=== PATIENT | male | born 1945 | race Caucasian/White ===

== ENCOUNTER 2018-10-19 15:30 | Inpatient (IN) ==
--- NOTE | 2018-10-19 16:04 | Emergency Department Note ---
Disposition Clinical Impression: Elevated troponin Disposition: Admitted As Inpatient Condition: Good Time of Disposition: 18:14 General Adult HPI - General Chief complaint: ED Chest Pain Stated complaint: chest pain Time Seen by Provider: 10/19/18 15:36 Source: patient Mode of arrival: ambulatory Limitations: no limitations Nursing Notes Reviewed: Yes Vital Signs Reviewed: Yes - History of Present Illness HPI Narrative: Patient is a 73-year-old male that presents emergency Department with reports of intermittent chest pain over the past 2 days. Patient states that yesterday he did develop chest pain after eating spicy food and it self resolved. Patient states that today he ate a big Mac and developed chest pain on both sides of his chest and had some discomfort down into his left arm. Patient states that his chest pain is now gone. States it lasted partially 45 minutes. Patient states that he did take an aspirin but did not take any nitroglycerin. Patient states that he does have a strong cardiac history with a history of coronary bypass. Patient states that the chest pain does feel somewhat similar to prior cardiac events. Patient denies any shortness of breath, diaphoresis but does state that he had some nausea however states that since he was started on metformin a couple of months ago he has been nauseated daily from that. Pain Scale: 0 - Related Data Home Medications Medication Instructions Recorded Confirmed Aspirin [Adult Low Dose Aspirin EC] 81 mg PO DAILY 06/02/15 10/19/18 Colesevelam HCl [Welchol] 3 tab PO DAILY 06/02/15 10/19/18 Fenofibric Acid (Choline) 135 mg PO DAILY 06/02/15 10/19/18 [Trilipix] Levothyroxine [Synthroid] 112 mcg PO 0630 06/02/15 10/19/18 Nebivolol HCl [Bystolic] 10 mg PO DAILY 06/02/15 10/19/18 Omeprazole [PriLOSEC] 20 mg PO DAILY 06/02/15 10/19/18 Rivaroxaban [Xarelto] 5 mg PO 1700 06/02/15 10/19/18 Valsartan [Diovan] 320 mg PO DAILY 06/02/15 10/19/18 amLODIPine [Norvasc] 5 mg PO DAILY PRN 06/01/16 10/19/18 hydroCHLOROthiazide 12.5 mg PO DAILY 04/07/17 08/25/19 [Hydrochlorothiazide] Atorvastatin [Lipitor] 40 mg PO HS 10/19/18 10/19/18 Levothyroxine 10/19/18 Zetia 10/19/18 Allergies Allergy/AdvReac Type Severity Reaction Status Date / Time CONTRAST DYE AdvReac Rash Uncoded 08/28/16 21:32 All systems ED: reviewed and negative except as stated. Constitutional: Denies: fever Cardiovascular: Reports: chest pain Respiratory: Denies: dyspnea Gastrointestinal: Reports: nausea. Denies: abdominal pain, vomiting, diarrhea Genitourinary: Denies: urgency, dysuria, frequency Neurological: Denies: weakness, numbness, paresthesias Past Medical History - Past Medical History Medical history: Reports: coronary artery disease, GERD, hyperlipidemia, hypertension, myocardial infarction, renal disease, thyroid disease, other Surgical history: Reports: angioplasty/stent, coronary bypass (CABG), orthopedic, other (Right wrist, left ankle) Psychiatric history: Reports: anxiety, depression - Social History Smoking Status: Never smoker Smokeless Tobacco Status: No Alcohol use: Reports: none Drug use: Reports: none Physical Exam - General Limitations: no limitations General appearance: alert, in no apparent distress - Head Head exam: atraumatic, normocephalic - Eye Eye exam: Present: normal appearance, EOMI - Neck Neck exam: Present: normal inspection, full ROM, trachea midline - Respiratory Respiratory exam: Present: normal lung sounds bilaterally. Absent: respiratory distress, wheezes - Cardiovascular Cardiovascular exam: Present: regular rate, normal rhythm, normal heart sounds, +S1, +S2 - Abdominal Exam Abdominal exam: Present: soft, Non-Tender, normal bowel sounds - Extremities Exam Extremities exam: Present: normal inspection, full ROM. Absent: tenderness, calf tenderness - Neurological Exam Neurological exam: Present: alert, oriented X3 - Psychiatric Psychiatric exam: Present: normal affect, normal mood - Skin Skin exam: Present: warm, dry, intact Course Vital Signs Temperature 98 F 10/19/18 15:32 Pulse Rate 54 10/19/18 15:32 Respiratory Rate 18 10/19/18 15:32 Blood Pressure 221/97 10/19/18 15:32 O2 Sat by Pulse Oximetry 93 10/19/18 15:32 Temperature 98.4 F 10/19/18 20:05 Pulse Rate 58 10/19/18 20:05 Respiratory Rate 16 10/19/18 20:05 Blood Pressure 212/85 10/19/18 20:06 O2 Sat by Pulse Oximetry 97 10/19/18 20:05 Oxygen Delivery Oxygen Delivery Room Air Medical Decision Making - MDM Narrative Medical decision making narrative: Due the patient presents emergency Department with reports of intermittent chest pain over the past few days we will obtain basic laboratory testing, chest x- ray and EKG. Patient's renal function at baseline. Patient's creatinine is 0.06. Patient is chest pain-free. Patient has been given aspirin. We will not do a nitroglycerin trial due to the patient being chest pain-free. Patient will not receive heparin at this time due to not being any acute ischemic changes on his EKG. We will recommend that the patient have the troponins trended and admit patient to the hospital. Patient did have an elevated blood pressure and required his home antihypertensive so his bystolic and Norvasc were given. Patient was in agreement with being admitted to the hospital for further evaluation and management. - Medical Records Medical records reviewed: Yes I reviewed the patient's medical records. - Lab Data Lab results reviewed: Yes I reviewed the patient's lab results. Result diagrams: 10/19/18 16:16 10/19/18 16:16 Lab Results 10/19/18 10/19/18 10/19/18 Range/Units 16:16 16:16 16:16 WBC 7.1 (4.3-11.1) K/mcL RBC 4.59 (4.19-5.50) M/mcL Hgb 13.2 (12.9-16.9) g/dL Hct 40.8 (37.5-50.1) % MCV 88.9 (83.0-100.0) fL MCH 28.8 (28.0-33.3) pg MCHC 32.4 (31.6-35.5) g/dL RDW 14.1 (11.5-14.5) % Plt Count 182 (140-400) K/mcL MPV 10.2 (9.4-12.4) fL Immature Gran % 0.4 (0-4) % Seg Neutrophils % 75.8 % Lymphocytes % 15.1 % Monocytes % 7.1 % Eosinophils % 1.3 % Basophils % 0.3 % Neutrophils # 5.4 (1.6-8.9) K/mcL Lymphocytes # 1.1 (0.6-4.6) K/mcL Monocytes # 0.5 (0.0-1.3) K/mcL Eosinophils # 0.1 (0.0-0.6) K/mcL Basophils # 0.0 (0.0-0.2) K/mcL PT 16.6 H (9.4-12.1) Seconds INR 1.5 APTT 42.2 H (26.0-36.0) Seconds Sodium 141 (136-145) mEq/L Potassium 3.8 (3.5-5.1) mEq/L Chloride 109 H (98-107) mEq/L Carbon Dioxide 25 (23-29) mEq/L BUN 27 H (8-23) mg/dL Creatinine 1.61 H (0.70-1.30) mg/dL Est GFR ( Amer) 51 L (> 60) Est GFR (Non-Af Amer) 42 L (> 60) BUN/Creatinine Ratio 17 (6-26) Glucose 241 H (70-105) mg/dL Calculated Osmolality 305 H (280-300) Calcium 9.5 (8.6-10.3) mg/dL Troponin I 0.06 H* (< 0.04) ng/mL - Radiology Data Radiology results reviewed: Yes I reviewed the patient's radiology results. Chest X-Ray 10/19/18 15:36 IMPRESSION: No acute process. Stable cardiomegaly D/ / Claude Ryan MD / Claude Ryan MD Interpreting Provider: Claude Ryan MD - EKG Data EKG #1 EKG attestation: Yes I reviewed and interpreted this EKG. EKG results narrative: EKG shows a sinus rhythm at a rate of 60 bpm, HI interval of 238, QRS duration 119, QTc of 443. There is no evidence of STEMI on EKG. This is compared to prior EKG on 08/28/16. Attestation Statement - Attestation Attestation: I, Yannick Chavira, examined this patient and my medical decision-making was reviewed with the INVESTMENTS MANAGER/PA/Advanced Practice Nurse/Resident Physician. I agree with the documented findings, disposition and treatment plan as described except to the extent set forth below. 73-year-old male presents to the emergency department for further evaluation of chest pain. Patient reports intermittent chest pain which he states occurred after eating. Last night it occurred after eating spicy food and then again today after eating salads. Patient denies a history of gallbladder problems in the past. Denies significant EtOH use. Denies recent trauma. Denies being short of breath. He did become mildly nauseated with the pain. He has a histor y of coronary artery disease and is status post multiple stents and bypass. Patient denies recent fevers, vomiting, diarrhea, or rash. Patient has a mildly elevated troponin on initial evaluation. He was given aspirin. EKG did not show evidence of STEMI or other dysrhythmia.I reviewed the EKG with the resident and agree with the interpretation. Patient will be admitted to hospitalist for further care and evaluation.
[2018-10-19 16:55] LABS: Basophils % 0.3 %; Eosinophils # 0.1 K/mcL (0.0-0.6); Eosinophils % 1.3 %; Hematocrit 40.8 % (37.5-50.1); Hemoglobin 13.2 g/dL (12.9-16.9); Immature Granulocytes % 0.4 % (0-4); Lymphocytes # 1.1 K/mcL (0.6-4.6); Lymphocytes % 15.1 %; Mean Corpuscular HGB Conc 32.4 g/dL (31.6-35.5); Mean Corpuscular Hemoglobin 28.8 pg (28.0-33.3); Mean Corpuscular Volume 88.9 fL (83.0-100.0); Mean Platelet Volume 10.2 fL (9.4-12.4); Monocytes # 0.5 K/mcL (0.0-1.3); Monocytes % 7.1 %; Neutrophils # 5.4 K/mcL (1.6-8.9); Platelet Count 182 K/mcL (140-400); Red Blood Count 4.59 M/mcL (4.19-5.50); Red Cell Distribution Width 14.1 % (11.5-14.5); Segmented Neutrophils % 75.8 %; White Blood Count 7.1 K/mcL (4.3-11.1)
[2018-10-19 17:12] LABS: INR 1.5; Prothrombin Time 16.6 Seconds (9.4-12.1)
[2018-10-19 17:15] LABS: Activated Partial Thrombo Time 42.2 Seconds (26.0-36.0)
[2018-10-19 17:16] LABS: Calcium 9.5 mg/dL (8.6-10.3); Potassium 3.8 mEq/L (3.5-5.1)
[2018-10-19 17:19] LABS: Troponin I 0.06 ng/mL (< 0.04)
[2018-10-19] MEDS ORDERED: Aspirin 81 MG TAB.CHEW PO STA (17:30)
[2018-10-19] MEDS ORDERED: amLODIPine 5 MG TABLET PO ONE (19:16)
[2018-10-19] MEDS ORDERED: Naloxone 0.4 MG/ML INJ IVP PRN (22:20)
[2018-10-19] MEDS ORDERED: amLODIPine 5 MG TABLET PO PRN (22:22)
--- NOTE | 2018-10-19 22:42 | Internal Med History&Physical ---
Date of Encounter: 10/19/18 Time of Encounter: 21:30 Internal Medicine - H&P: HPI Chief complaint: Chest pain Admitted From: Emergency Dept Plans for Post Hospital Care: Home History of present illness: Mr. Perez is a 73 year old male Patient presented to the emergency department with chest pain for 2 days. He states that he had finished his dinner yesterday, he has sudden onset chest pain but it resolved on its own. He went to bed, woke up feeling fine but then around lunchtime he had similar pain that started in his upper abdomen but then went up into his chest. He also had some associated left arm tingling as well. He has a significant history of cardiac disease including multiple stents over the last 20 years as well as coronary bypass in 1998. He took aspirin at home and drove himself to the hospital for further evaluation. Upon arrival to the ER his chest pain had resolved. Vital signs: Notable for a blood pressure of 221/97 CBC unremarkable BMP: Creatinine of 1.61 which is approximately baseline, glucose 241 Troponin 0.06 INR 1.5 Chest x-ray showed no acute process EKG: Sinus rhythm, rate 60, QTC 443 ms. Similar to previous, PVCs, no ST elevations. In the emergency department patient received a dose of amlodipine 5 mg, 324 mg of aspirin and 10 mg of his home dose of by systolic. He was admitted to the hospital for further management. Upon my evaluation, patient is resting comfortably in the hospital bed in no acute distress. He denies chest pain, abdominal pain, nausea, vomiting, diarrhea and constipation. He typically follows with his manager tax at [facility]. His last stress test was about 2 years ago and was normal. 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 He is a occupational therapist aide. He is a full code. He denies significant family medical history, but does state that his brother also has factor V deficiency. Past Med Surg Social Fam HX - Past Medical History Medical history: coronary artery disease, diabetes, GERD, hyperlipidemia, hypertension, myocardial infarction, renal disease, thyroid disease, other Additional medical history: factor V Psychiatric history: anxiety, depression - Past Surgical History Surgical History: angioplasty/stent, coronary bypass (CABG), orthopedic, other (Right wrist, left ankle) Additional surgical history: RIGHT WRIST. LEFT ANKLE - Social History Smoking Status: Never smoker Smokeless Tobacco Status: No Alcohol use: none Drug use: none - Family History Brother Hx Family Medical Disorders: Yes (Factor V deficiency) Internal Medicine - H&P: Meds Aspirin [Adult Low Dose Aspirin EC] 81 mg PO DAILY 06/02/15 [History] Colesevelam HCl [Welchol] 3 tab PO DAILY 06/02/15 [History] Fenofibric Acid (Choline) [Trilipix] 135 mg PO DAILY 06/02/15 [History] Levothyroxine [Synthroid] 112 mcg PO 0630 06/02/15 [History] Nebivolol HCl [Bystolic] 10 mg PO DAILY 06/02/15 [History] Omeprazole [PriLOSEC] 20 mg PO DAILY 06/02/15 [History] Rivaroxaban [Xarelto] 5 mg PO 1700 06/02/15 [History] Valsartan [Diovan] 320 mg PO DAILY 06/02/15 [History] amLODIPine [Norvasc] 5 mg PO DAILY PRN 06/01/16 [History] hydroCHLOROthiazide [Hydrochlorothiazide] 12.5 mg PO DAILY 06/01/16 [History] Atorvastatin [Lipitor] 40 mg PO HS 10/19/18 [History] Levothyroxine 10/19/18 [History] Zetia 10/19/18 [History] Allergy/AdvReac Type Severity Reaction Status Date / Time CONTRAST DYE AdvReac Rash Uncoded 08/28/16 21:32 All Systems PM: A 10-system review of systems was performed and is negative for pertinent findings except as documented above in the HPI. - Constitutional Vitals: Temp Pulse Resp BP Pulse Ox 98.4 F 58 16 212/85 97 10/19/18 20:05 10/19/18 20:05 10/19/18 20:05 10/19/18 20:06 10/19/18 20:05 General appearance: Present: cooperative, A&O X 3, pleasant, no acute distress, answers questions appropriately Exam: - - Head Head exam: Present: normal inspection - Eye Eye exam: Present: EOMI, normal appearance - Respiratory Respiratory exam: Present: CTAB. Absent: rales, respiratory distress, rhonchi, wheezes - Cardiovascular Cardiovascular exam: Present: RRR. Absent: diastolic murmur, systolic murmur - GI/Abdominal GI/Abdominal exam: Present: normal bowel sounds, soft. Absent: tenderness - Extremities Exam Extremities exam: Present: warm, radial pulses palpable and symmetrical. Absent: calf tenderness, pedal edema, tenderness - Neurological Exam Neurological exam: Present: no focal deficits, strengths equal and symetr throughout. Absent: motor sensory deficit, facial droop, speech deficit - Skin Skin exam: Present: dry, normal color, warm Internal Med - H&P Results - Labs CBC & Chem 7: 10/19/18 16:16 10/19/18 16:16 Labs: Short CBC 10/19/18 Range/Units 16:16 WBC 7.1 (4.3-11.1) K/mcL Hgb 13.2 (12.9-16.9) g/dL Hct 40.8 (37.5-50.1) % Plt Count 182 (140-400) K/mcL Neutrophils # 5.4 (1.6-8.9) K/mcL BMP 10/19/18 16:16 Sodium 141 Potassium 3.8 Chloride 109 H Carbon Dioxide 25 BUN 27 H Creatinine 1.61 H Glucose 241 H Calcium 9.5 Cardiac Enzymes 10/19/18 Range/Units 16:16 Troponin I 0.06 H* (< 0.04) ng/mL - Impressions ITS Impressions Chest X-Ray 10/19/18 15:36 IMPRESSION: No acute process. Stable cardiomegaly D/ / Claude Ryan MD / Claude Ryan MD Interpreting Provider: Claude Ryan MD - Assessment and Plan (1) Chest pain Current Visit: Yes Status: Acute Assessment and plan: Now resolved, patient has history of coronary artery disease. Initial troponin elevated at 0.06. EKG showed no ischemic changes. Continue to trend troponin Cardiac telemetry Echocardiogram in the morning Qualifiers: Chest pain type: unspecified Qualified Code(s): R07.9 - Chest pain, unspecified (2) Diabetes Current Visit: Yes Status: Acute Assessment and plan: Patient is not an insulin dependent diabetic Monitor sugars ACHS Diabetic diet, NPO after midnight Low dose insulin sliding scale as needed Hold home meds. Qualifiers: Diabetes mellitus type: type 2 Diabetes mellitus assisted insulin use: without assisted use Diabetes mellitus complication status: with hyperglycemia Qualified Code(s): E11.65 - Type 2 diabetes mellitus with hyperglycemia (3) Hypertensive urgency Current Visit: No Status: Acute Assessment and plan: Patient takes blood pressure medicines at home. Blood pressure elevated greater than 200 systolic in the ER. On repeat when he arrived to the floor patient's blood pressure was 189/85. He received his home medicine in the ER. IV hydralazine as needed Continue home meds Continue to monitor (4) Elevated troponin Current Visit: Yes Status: Acute Assessment and plan: Troponin 0.06 in the emergency department. Patient denies chest pain. EKG showed no change from previous. Cardiac telemetry Continue to trend troponin Echocardiogram in the morning (5) Chronic kidney disease Current Visit: Yes Status: Acute Assessment and plan: At baseline. Avoid nephrotoxic medicine Renally dose meds Repeat a.m. labs IV fluid hydration Qualifiers: Chronic kidney disease stage: stage 3 (moderate) Qualified Code(s): N18.3 - Chronic kidney disease, stage 3 (moderate) (6) DVT prophylaxis Current Visit: Yes Status: Acute Assessment and plan: Continue Xarelto - Time Spent With Patient Total time spent is greater than 50% in coordination of care (as documented) at patient's floor/unit and/or counseling patient: Greater than 35 minutes
[2018-10-19] MEDS ORDERED: *HR* Dextrose 50 % in Water (Syg) 50 ML SYRINGE IVP PRN (22:44)
[2018-10-19] MEDS ORDERED: D5% in Water 1,000 ML IVC PRN (22:44)
[2018-10-19] MEDS ORDERED: Dextrose Gel 15 GM/37.5 ML TUBE PO PRN ×2 (22:44)
[2018-10-19] MEDS: 0.9 % Sodium Chloride 1,000 ML IVC SCH (23:17)
[2018-10-19] MEDS: Insulin LISPRO 300 UNITS/3 ML VIAL SQ SCH (23:58)
[2018-10-20] MEDS ORDERED: *HR* Heparin 5,000 UNIT/ML VIAL IVP PRN ×4 (00:02→09:00)
[2018-10-20] MEDS ORDERED: Heparin 25,000 UNIT/250 ML D5W 25,000 UNIT/250 ML IV.SOLN IVC SCH (00:15)
[2018-10-20 00:48] LABS: Hematocrit 40.5 % (37.5-50.1); Hemoglobin 13.3 g/dL (12.9-16.9); Mean Corpuscular HGB Conc 32.8 g/dL (31.6-35.5); Mean Corpuscular Hemoglobin 28.9 pg (28.0-33.3); Mean Corpuscular Volume 87.9 fL (83.0-100.0); Mean Platelet Volume 10.3 fL (9.4-12.4); Platelet Count 168 K/mcL (140-400); Red Blood Count 4.61 M/mcL (4.19-5.50); White Blood Count 7.3 K/mcL (4.3-11.1)
[2018-10-20 00:55] LABS: Heparin anti-factor XA UFH 0.84 IU/mL (0.30-0.70); INR 1.4; Prothrombin Time 15.4 Seconds (9.4-12.1)
[2018-10-20 01:05] LABS: BUN/Creatinine Ratio 17 (6-26); Blood Urea Nitrogen 24 mg/dL (8-23); Calcium 9.2 mg/dL (8.6-10.3); Carbon Dioxide 23 mEq/L (23-29); Chloride 111 mEq/L (98-107); Glucose 164 mg/dL (70-105); Osmolality,Calculated 302 (280-300); Potassium 3.5 mEq/L (3.5-5.1); Sodium 142 mEq/L (136-145); eGFR For African Americans > 60 (> 60); eGFR For Non-African Americans 51 (> 60)
[2018-10-20 04:56] LABS: Hematocrit 41.7 % (37.5-50.1); Hemoglobin 13.6 g/dL (12.9-16.9); Mean Corpuscular HGB Conc 32.6 g/dL (31.6-35.5); Mean Corpuscular Hemoglobin 28.4 pg (28.0-33.3); Mean Corpuscular Volume 87.1 fL (83.0-100.0); Mean Platelet Volume 10.1 fL (9.4-12.4); Platelet Count 194 K/mcL (140-400); Red Blood Count 4.79 M/mcL (4.19-5.50); White Blood Count 8.3 K/mcL (4.3-11.1)
[2018-10-20] MEDS: Insulin LISPRO 300 UNITS/3 ML VIAL SQ SCH ×4 (05:52→23:46)
[2018-10-20 09:30] LABS: INR 1.2; Prothrombin Time 13.7 Seconds (9.4-12.1)
[2018-10-20 09:33] LABS: Activated Partial Thrombo Time 37.5 Seconds (26.0-36.0)
--- NOTE | 2018-10-20 10:46 | Cardiology Consult Note ---
<Neri Atwood - Last Filed: 10/20/18 11:51> Date of Encounter: 10/20/18 Time of Encounter: 09:30 Assessment and Plan (1) Hypertensive urgency Current Visit: No Status: Acute Presented with systolic BP 220s. Currently, BP not well controlled; remains on BB, will resume home norvasc 10 mg once daily. Continue to hold diovan, HCTZ for now. (2) Chest pain Current Visit: Yes Status: Acute 1. Echo pending. Currently chest pain free; remains asymptomatic. Qualifiers: Chest pain type: unspecified Qualified Code(s): R07.9 - Chest pain, unspecified (3) Elevated troponin Current Visit: Yes Status: Acute Elevated troponins 0.06, 0.13, 0.11; however, no ischemic changes on EKG. Suspect type 2 demand ischemia with underlying CKD, and presented with hypertensive urgency. Cardiac rehab consult not warranted at this time. Echo pending; will assess LV function and determine recs; however, if chest pain continues will consider LHC. Currently, chest pain free. Discussed and reviewed with Dr. Bagley. (4) CAD (coronary artery disease) Current Visit: Yes Status: Chronic History of prior CABG 1998 with 2 grafts stents s/p CABG; Sees Dr. Yannick Echols at [facility]. Will obtain previous stress, cath, and echo records from [facility]. Continue ASA, BB, and added home statin to regimen. Qualifiers: Qualified Code(s): I25.10 - Atherosclerotic heart disease of [place] coronary artery without angina pectoris (5) Chronic kidney disease Current Visit: Yes Status: Chronic Previous history of CKD. Recommend holding home diovan and HCTZ at this time related to preserving kidney function until echo results and further recs. Qualifiers: Chronic kidney disease stage: stage 3 (moderate) Qualified Code(s): N18.3 - Chronic kidney disease, stage 3 (moderate) Discussion w patient/family: The assessment and plan as outlined above was discussed with the patient and/or family members who expressed understanding and agreement. All questions were answered. Thank you for involving us in the care of your patient. Please call with any questions. History of Present Illness Consult date: 10/20/18 Consult reason: chest pain Chief complaint: chest pain History of present illness: Mr. Perez is a 73 year old male with pmh of CAD, DM, GERD, HLD, HTN, graft stents x 2 s/p CABG 1998, multiple previous stents, renal disease, thyroid disease, factor V deficiency. Presented with 1 episode abrupt chest pain at rest lasting approximately 10 minutes, described as discomfort, aching 4/10; some n/t left arm, denies alleviating, aggravating factors. Administered ASA at home prior to admission. Chest pain resolved upon admission; denies SOB, palpitations, dizziness, headache, diaphoresis at time of event. Currently, chest pain free. Last chest pain > 10 years ago. Was found to be hypertensive upon arrival with BP 220s/90s; admits to headache last night resolved without interventions. Compliant with home medications. Past Med Surg Social Fam HX - Past Medical History Attestation: Yes The following information was validated with the patient. Source: patient, old records reviewed Medical history: coronary artery disease, diabetes, GERD, hyperlipidemia, hypertension, myocardial infarction, renal disease, thyroid disease, other Additional medical history: factor V Psychiatric history: anxiety, depression - Past Surgical History Surgical History: angioplasty/stent, coronary bypass (CABG), orthopedic, other (Right wrist, left ankle) Additional surgical history: RIGHT WRIST. LEFT ANKLE - Social History Smoking Status: Never smoker Smokeless Tobacco Status: No Alcohol use: none Drug use: none - Family History Mother Hx Family Neurologic Disorders: Yes (vangie) Father Hx Family Neurologic Disorders: Yes (vangie) Brother Hx Family Medical Disorders: Yes (Factor V deficiency) Medications and Allergies Colesevelam HCl [Welchol] 3 tab PO DAILY 06/02/15 [History] Fenofibric Acid (Choline) [Trilipix] 135 mg PO DAILY 06/02/15 [History] Levothyroxine [Synthroid] 112 mcg PO 0630 06/02/15 [History] Nebivolol HCl [Bystolic] 10 mg PO DAILY 06/02/15 [History] Omeprazole [PriLOSEC] 20 mg PO DAILY 06/02/15 [History] Rivaroxaban [Xarelto] 15 mg PO 1700 06/02/15 [History] hydroCHLOROthiazide [Hydrochlorothiazide] 12.5 mg PO DAILY 06/01/16 [History] Atorvastatin [Lipitor] 40 mg PO HS 10/19/18 [History] Ezetimibe [Zetia] 10 mg PO DAILY 10/19/18 [History] Amlodipine Besylate 10 mg PO DAILY 10/20/18 [History] Aspirin [Lo-Dose Aspirin EC] 81 mg PO DAILY 10/20/18 [History] Metformin HCl 500 mg PO BID 10/20/18 [History] Valsartan [Diovan] 320 mg PO DAILY 10/20/18 [History] Allergy/AdvReac Type Severity Reaction Status Date / Time CONTRAST DYE AdvReac Rash Uncoded 10/20/18 10:05 All Systems Review: The remainder of the systems were reviewed and are negative - Constitutional Constitutional: no fatigue, no fever(s), no frequent falls - EENT Eyes: no blurred vision - Cardiovascular Cardiovascular: as per HPI - Gastrointestinal Gastrointestinal: no abdominal pain Physical Examination Selected Entries 10/20/18 06:02 Temperature 97.5 F L Pulse Rate 50 Respiratory Rate 16 Blood Pressure 168/78 O2 Sat by Pulse Oximetry 97 Impressions General: Conversant, No Apparent Distress HEENT: Atraumatic, Normocephaly, Mucus Membranes Moist Neck: No JVD, Normal carotid pulses Cardiac: Reg Rate and Rhythm, Normal S1 and S2, No Murmur Lungs: Normal Breath Sounds, No Wheeze, Rales, Rhonchi Neuro: Alert and responsive, No focal deficits noted Abdomen: Soft, Non-Tender Skin: No rashes noted on visualized skin Musculoskeletal: No Chest Wall Tenderness Extremities: No Clubbing, No Cyanosis, Normal Pulses, Other (1 + pitting edema bilat lower legs) Results 10/20/18 04:36 10/20/18 00:35 Lab Results Laboratory Tests 10/20/18 10/20/18 10/20/18 00:35 00:35 04:36 Hgb 13.3 Hct 40.5 BUN 24 H Creatinine 1.38 H Est GFR (Non-Af Amer) 51 L Troponin I 0.11 H* Laboratory Tests 10/19/18 10/19/18 10/20/18 16:16 22:44 04:36 Troponin I 0.06 H* 0.13 H* 0.11 H* Impressions Chest X-Ray 10/19/18 15:36 IMPRESSION: No acute process. Stable cardiomegaly D/ / Claude Ryan MD / Claude Ryan MD Interpreting Provider: Claude Ryan MD Active Medications Amlodipine Besylate (Norvasc) 5 mg PO DAILY PRN; Protocol PRN Reason: blood pressue Stop: 04/20/19 22:23 Aspirin (Aspirin Ec) 81 mg PO DAILY KEIKO Stop: 04/21/19 09:01 Dextrose/Water (Dextrose 50% (Syg)) 25 ml IVP AD PRN PRN Reason: Hypoglycemia Stop: 04/20/19 22:45 Glucagon (Glucagen) 1 mg IM ONCE PRN PRN Reason: Hypoglycemia Stop: 04/20/19 22:45 Glucose (Gluctose) 15 gm PO ONCE PRN PRN Reason: Hypoglycemia Stop: 04/20/19 22:45 Glucose (Gluctose) 30 gm PO ONCE PRN PRN Reason: Hypoglycemia Stop: 04/20/19 22:45 Heparin Sodium (Porcine) (Heparin) 4,000 unit IVP Q6HR PRN PRN Reason: SEE COMMENTS Stop: 04/21/19 09:01 Heparin Sodium (Porcine) (Heparin) 2,000 unit IVP Q6H PRN PRN Reason: SEE COMMENTS Stop: 04/21/19 09:01 Hydralazine HCl (Hydralazine) 10 mg IVP Q6HR PRN PRN Reason: Hypertension Stop: 04/20/19 22:34 Last Admin: 10/19/18 23:16 Dose: 10 mg Documented by: Sodium Chloride (0.9 % Sodium Chloride) 1,000 mls @ 125 mls/hr IVC .Q8H KEIKO Stop: 10/20/18 14:29 Last Admin: 10/19/18 23:17 Dose: 125 mls/hr Documented by: Dextrose (Dextrose 5%) 1,000 mls @ 100 mls/hr IVC .Q10H PRN PRN Reason: HYPOGLYCEMIA Stop: 04/20/19 22:45 Heparin Sodium/Dextrose (Heparin 25,000 Unit/250 Ml D5w) 25,000 unit in 250 mls @ 10.038 mls/hr IVC .Q24H KEIKO; Protocol Stop: 04/21/19 09:01 Insulin Human Lispro (Humalog) 0 units SQ Q6HR KEIKO; Protocol Stop: 04/21/19 00:01 Last Admin: 10/20/18 05:52 Dose: Not Given Documented by: Levothyroxine Sodium (Synthroid) 112 mcg PO 0630 [facility] Stop: 04/21/19 06:31 Last Admin: 10/20/18 05:56 Dose: 112 mcg Documented by: Naloxone HCl (Narcan) 0.4 mg IVP Q2MPRN PRN PRN Reason: SEE COMMENTS Stop: 04/20/19 22:21 Nebivolol (Bystolic) 10 mg PO DAILY [facility] Stop: 04/21/19 09:01 - Imaging and Cardiology Chest Xray: report reviewed Echo: pending - EKG Interpretation EKG results cardiology: no diagnostic ischemia Consult Discharge Plan - Plan Referrals: Augustine Burrell MD [Primary Care Provider] - HAS-BLED Score - Score Hypertension: Uncontrolled,>160 mmhg systolic Elderly: Age>65 years Medication usage predisposing to bleeding: Antiplatelet agents, NSAIDs, Anticoagulants Score: 3 <Paula Bagley - Last Filed: 10/20/18 13:13> Date of Encounter: 10/20/18 - Attending Attestation I examined this patient and my medical decision-making was reviewed with the TOWN CLERK. I agree with the documented findings, disposition and treatment plan as described. Mr. Perez presents with an episode of chest discomfort and flat, elevated troponins in setting of hypertensive urgency and CKD. No recurrent chest pain symptoms. ECG without ischemic findings. Etiology of troponin elevation may be secondary to uncontrolled hypertension. Discussed treatment options with patient. Recommend an echo to help tailor therapy. If Echo returns with stable findings (when compared to prior echo), and no recurrent chest pain can consider optimizing medical therapy and discharging with outpatient Cardiology follow up with his primary License And Permit Specialist at [place]. Alternatively, if patient has recurrent chest pain or Echo findings are abnormal, would consider proceeding with [facility]. The patient and expressed understanding of the recommendations and agreed with the plan. All questions were answered to patient satisfaction. Assessment and Plan Discussion w patient/family: The assessment and plan as outlined above was discussed with the patient and/or family members who expressed understanding and agreement. All questions were answered. Thank you for involving us in the care of your patient. Please call with any questions. History of Present Illness History of present illness: Mr. Perez is a 73 year old male All Systems Review: The remainder of the systems were reviewed and are negative Physical Examination Vital Signs, Last 4 Hours Temp Pulse Resp BP Pulse Ox 10/20/18 11:41 64 167/74 97 10/20/18 11:15 97.7 F 55 14 196/95 97 Results 10/20/18 04:36 10/20/18 00:35 Lab Results 10/19/18 10/19/18 10/19/18 16:16 16:16 16:16 WBC 7.1 Hgb 13.2 Hct 40.8 Plt Count 182 INR 1.5 APTT 42.2 H Sodium 141 Potassium 3.8 Chloride 109 H Carbon Dioxide 25 BUN 27 H Creatinine 1.61 H Glucose 241 H Calcium 9.5 Troponin I 0.06 H* 10/19/18 10/20/18 10/20/18 22:44 00:35 00:35 WBC 7.3 Hgb 13.3 Hct 40.5 Plt Count 168 INR APTT Sodium 142 Potassium 3.5 Chloride 111 H Carbon Dioxide 23 BUN 24 H Creatinine 1.38 H Glucose 164 H Calcium 9.2 Troponin I 0.13 H* 10/20/18 10/20/18 10/20/18 00:35 04:36 04:36 WBC 8.3 Hgb 13.6 Hct 41.7 Plt Count 194 INR 1.4 APTT Sodium Potassium Chloride Carbon Dioxide BUN Creatinine Glucose Calcium Troponin I 0.11 H* 10/20/18 09:08 WBC Hgb Hct Plt Count INR 1.2 APTT 37.5 H Sodium Potassium Chloride Carbon Dioxide BUN Creatinine Glucose Calcium Troponin I
[2018-10-20] MEDS: Heparin 25,000 UNIT/250 ML D5W 25,000 UNIT/250 ML IV.SOLN IVC SCH (11:03)
[2018-10-20] MEDS: Aspirin Enteric Coated 81 MG Tablet PO SCH (11:03)
--- NOTE | 2018-10-20 12:55 | Event Note ---
Date of Encounter: 10/20/18 Time of Encounter: 12:54 - Cardiology Event Note Laboratory Tests 09/08/18 09:12 AST 16 ALT 12 LDL Cholesterol, Calc 66
--- NOTE | 2018-10-20 16:12 | Internal Med Progress Note ---
Hospitalist Progress Note - Encounter Date of Encounter: 10/20/18 Time of Encounter: 16:08 - Subjective Interval History: Mr. Perez is a 73 year old male with a known past medical history of CAD, hypertension, hyperlipidemia, diabetes, hypothyroidism and CKD-3 pt presented to ER with chest pain. He had sudden onset chest pain located sub sternal radiated to his left arm lasted for 5 to 10 minutes. He was admitted in the hospital placed him on monitoring tech. He denied any more active chest pain. His troponin peakead @ 0.13. His EKG did not show any acute ischemic changes. - Exam Vitals: Temp Pulse Resp BP Pulse Ox 98.3 F 51 14 150/76 97 10/20/18 15:24 10/20/18 15:24 10/20/18 15:24 10/20/18 15:24 10/20/18 15:24 Exam: Gen: Alert, awake, Oriented to time,place and person Chest: Diminished breath sounds B/L, No wheezing, No crackles, No rales Heart: S1S2+ RRR No murmurs Abd: Soft, NT, BS +, No organomegaly Ext: No edema, pulses are palpable, No calf tenderness Neuro : No acute focal neuro deficits noticed Skin: No rash. - Assessment and Plan (1) Chest pain Current Visit: Yes Status: Acute Assessment and Plan: Continue on tele reviewed his troponin cont home meds ASA, Statin, Bystolic and Diovan cardiology started him on imdur reviewed his echocardiogram showed LVEF 55%, however he does have mild segmental LV systolic dysfunction Card recommend his recent 2D Echo from [facility] if that looks similar to current Echo, no need of LHC, if current segmental dysfunction is new he does need [facility] appreciate cardiology recommendations (2) Hypertensive urgency Current Visit: No Status: Acute Assessment and Plan: His blood pressure seems to be little better now continue home medication Norvasc 10 mg, Bystoic, and Diovan Card started him on Imdur (3) Elevated troponin Current Visit: Yes Status: Acute Assessment and Plan: His trop peaked at 0.13 and now started trending down continue close monitoring Seems to be demand ischemia Card is on board appreciate recommendations (4) Diabetes Current Visit: Yes Status: Acute Assessment and Plan: on ADA diet on ISS (5) DVT prophylaxis Current Visit: Yes Status: Acute Assessment and Plan: cont Heparin gtt (6) Chronic kidney disease Current Visit: Yes Status: Chronic Assessment and Plan: At baseline. Avoid nephrotoxic medicine R - Time Spent with Patient Total time spent is greater than 50% in coordination of care (as documented) at patient's floor/unit and/or counseling patient: Internal Medicine: Result - Labs CBC & Chem 7: 10/20/18 04:36 10/20/18 00:35 Labs: Short CBC 10/19/18 10/20/18 10/20/18 Range/Units 16:16 00:35 04:36 WBC 7.1 7.3 8.3 (4.3-11.1) K/mcL Hgb 13.2 13.3 13.6 (12.9-16.9) g/dL Hct 40.8 40.5 41.7 (37.5-50.1) % Plt Count 182 168 194 (140-400) K/mcL Neutrophils # 5.4 (1.6-8.9) K/mcL BMP 10/19/18 10/20/18 16:16 00:35 Sodium 141 142 Potassium 3.8 3.5 Chloride 109 H 111 H Carbon Dioxide 25 23 BUN 27 H 24 H Creatinine 1.61 H 1.38 H Glucose 241 H 164 H Calcium 9.5 9.2 Cardiac Enzymes 10/19/18 10/19/18 10/20/18 Range/Units 16:16 22:44 04:36 Troponin I 0.06 H* 0.13 H* 0.11 H* (< 0.04) ng/mL - ABG Interpretation ABG results: PT/INR, D-dimer PT 13.7 Seconds (9.4-12.1) H 10/20/18 09:08 - Impressions Impressions Echocardiogram 10/19/18 22:22 Impressions: LVEF 55%. Normal LV chamber size, wall thickness and overall function. Mild segmental left ventricular systolic dysfunction. Atypical septal motion consistent with post-operative status. Moderate left ventricular diastolic dysfunction. Normal right ventricular structure and function. No evidence of pulmonary hypertension. No significant valvular dysfunction. Left Ventricular Wall Motion: Rest Echo Findings The mid inferior lateral and basal inferior lateral gomez were hypokinetic. All other wall segments showed normal motion. Findings: Study Quality * Technically sub-optimal due to poor echocardiographic windows. ECG Findings * Normal sinus rhythm. Left Ventricle * LVEF 55%. * Normal LV chamber size, wall thickness and overall function. * Mild segmental left ventricular systolic dysfunction. * Atypical septal motion consistent with post-operative status. * Moderate left ventricular diastolic dysfunction. Right Ventricle * Normal right ventricular structure and function. Left Atrium * Normal left atrial size. Right Atrium * Normal right atrial size. Interatrial Septum * Interatrial septum not well evaluated. Aortic Valve * Aortic valve not well visualized. * No aortic regurgitation. * No aortic stenosis. Mitral Valve * Normal mitral valve structure and function. * No mitral stenosis. * Trace mitral regurgitation. Tricuspid Valve * Normal tricuspid valve structure and function. * Trace tricuspid regurgitation. * No evidence of pulmonary hypertension. Pulmonic Valve * Pulmonic valve is not well visualized. Aorta * Normally sized aortic root. Pericardium * The pericardium appears normal. IVC * The IVC is not well evaluated. Pulmonary Artery * Pulmonary artery not well visualized. Consult Discharge Plan - Plan Referrals: Augustine Burrell MD [Primary Care Provider] - (1) Chest pain Qualifiers: Chest pain type: unspecified Qualified Code(s): R07.9 - Chest pain, unspecified (4) Diabetes Qualifiers: Diabetes mellitus type: type 2 Diabetes mellitus nursing home insulin use: witho ut nursing home use Diabetes mellitus complication status: with hyperglycemia Qualified Code(s): E11.65 - Type 2 diabetes mellitus with hyperglycemia (6) Chronic kidney disease Qualifiers: Chronic kidney disease stage: stage 3 (moderate) Qualified Code(s): N18.3 - Chronic kidney disease, stage 3 (moderate)
[2018-10-20] MEDS ORDERED: *HR* Rivaroxaban 15 MG TABLET PO SCH (17:00)
[2018-10-20] MEDS: Valsartan 160 MG TABLET PO SCH (17:35)
[2018-10-20] MEDS: amLODIPine 5 MG TABLET PO SCH (17:36)
[2018-10-20] MEDS: 0.9 % Sodium Chloride 1,000 ML IVC SCH (19:00)
[2018-10-20] MEDS ORDERED: Ondansetron 4 MG/2 ML VIAL IVP PRN (19:58)
[2018-10-20] MEDS ORDERED: Morphine Sulfate 2 MG/ML SYRINGE IVP PRN (22:04)
[2018-10-20] MEDS: Nitroglycerin 0.4 MG TAB.SUBL SL PRN ×2 (22:37→23:42)
--- NOTE | 2018-10-20 22:50 | Event Note ---
Date of Encounter: 10/20/18 Time of Encounter: 21:39 Notified by nurse of patient having chest pain. Pain radiating up into neck and head and also having numbness down left arm. Blood pressure also elevated, Morphine and additional Hydralazine ordered. EKG ordered and reviewed with Dr Bobby, some ST depression noted. Pain slightly improving, will also give nitro x1. Reassessed and reports pain is continuing to ease, blood pressure improved to 130's systolic. Continue heparin drip and tele monitoring. Nurse to notify of any changes.
--- NOTE | 2018-10-21 00:19 | Electrocardiograph Report ---
[place] [facility] Test Date: 2018-10-19 Pat Name: Lee Perez Department: EXAM5 Room: 3B54 Gender: M Dj Instructor: : 1945 Requested By: Yannick Chavira Order Number: [id number] Reading MD: Aman Villatoro Measurements Intervals [place] Rate: 60 P: 4 ND: 238 QRS: -22 QRSD: 119 T: -9 QT: 443 QTc: 443 Interpretive Statements Sinus rhythm Multiform ventricular premature complexes Prolonged ND interval Probable left ventricular hypertrophy Borderline T abnormalities, inferior leads Electronically Signed On 10-21-2018 0:18:04 EDT by Aman Villatoro
[2018-10-21] MEDS ORDERED: Ondansetron 4 MG/2 ML VIAL IVP ONE (00:29)
[2018-10-21] MEDS: Acetaminophen 325 MG TABLET PO PRN ×2 (00:40→11:49)
[2018-10-21] MEDS ORDERED: Morphine Sulfate 2 MG/ML SYRINGE IVP PRN (01:24)
[2018-10-21] MEDS ORDERED: Nitroglycerin 25 MG/250 ML INFUS..BTL IVC SCH (01:30)
[2018-10-21] MEDS: Insulin LISPRO 300 UNITS/3 ML VIAL SQ SCH ×3 (05:55→20:01)
[2018-10-21 08:39] LABS: BUN/Creatinine Ratio 16 (6-26); Blood Urea Nitrogen 22 mg/dL (8-23); Carbon Dioxide 22 mEq/L (23-29); Chloride 109 mEq/L (98-107); Glucose 133 mg/dL (70-105); Osmolality,Calculated 299 (280-300); Potassium 3.6 mEq/L (3.5-5.1); Sodium 142 mEq/L (136-145); eGFR For African Americans > 60 (> 60); eGFR For Non-African Americans 50 (> 60)
[2018-10-21] MEDS ORDERED: NON-FORMULARY MEDICATION 1 EACH EACH (Ezetimibe [Zetia] 10 MG) PO SCH (09:00)
--- NOTE | 2018-10-21 09:25 | Event Note ---
Date of Encounter: 10/21/18 Time of Encounter: 08:15 - Cardiology Event Note Laboratory Tests 10/19/18 10/19/18 10/20/18 16:16 22:44 00:35 Creatinine 1.38 H Est GFR (Non-Af Amer) 51 L Troponin I 0.06 H* 0.13 H* 10/20/18 10/21/18 04:36 07:36 Creatinine 1.40 H Est GFR (Non-Af Amer) 50 L Troponin I 0.11 H* Complaint of chest burning/chest pain last night relieved with IV morphine and nitroglycerin drip. Currently chest pain-free on nitroglycerin drip. Echo results noted: Impressions Echocardiogram 10/19/18 22:22 Impressions: LVEF 55%. Normal LV chamber size, wall thickness and overall function. Mild segmental left ventricular systolic dysfunction. Atypical septal motion consistent with post-operative status. Moderate left ventricular diastolic dysfunction. Normal right ventricular structure and function. No evidence of pulmonary hypertension. No significant valvular dysfunction. Left Ventricular Wall Motion: Rest Echo Findings The mid inferior lateral and basal inferior lateral gomez were hypokinetic. All other wall segments showed normal motion. Findings: Study Quality * Technically sub-optimal due to poor echocardiographic windows. ECG Findings * Normal sinus rhythm. Left Ventricle * LVEF 55%. * Normal LV chamber size, wall thickness and overall function. * Mild segmental left ventricular systolic dysfunction. * Atypical septal motion consistent with post-operative status. * Moderate left ventricular diastolic dysfunction. Right Ventricle * Normal right ventricular structure and function. Left Atrium * Normal left atrial size. Right Atrium * Normal right atrial size. Interatrial Septum * Interatrial septum not well evaluated. Aortic Valve * Aortic valve not well visualized. * No aortic regurgitation. * No aortic stenosis. Mitral Valve * Normal mitral valve structure and function. * No mitral stenosis. * Trace mitral regurgitation. Tricuspid Valve * Normal tricuspid valve structure and function. * Trace tricuspid regurgitation. * No evidence of pulmonary hypertension. Pulmonic Valve * Pulmonic valve is not well visualized. Aorta * Normally sized aortic root. Pericardium * The pericardium appears normal. IVC * The IVC is not well evaluated. Pulmonary Artery * Pulmonary artery not well visualized. Discussed and reviewed with Dr. Bagley, recommendations for catheterization today. Kidney function remains stable. Patient denies history of IVP dye allergy in terms of anaphylactic reactions-- indicated listed as allergy as due to suspected IVP dye contributing to his underlying CKD. Further recommendations after catheterization. HAS-BLED Score - Score Elderly: Age>65 years Medication usage predisposing to bleeding: Antiplatelet agents, NSAIDs, Anticoagulants Score: 2
[2018-10-21] MEDS: Heparin 25,000 UNIT/250 ML D5W 25,000 UNIT/250 ML IV.SOLN IVC SCH (09:35)
--- NOTE | 2018-10-21 11:05 | Cardiology Consult Note ---
Date of Encounter: 10/21/18 Assessment and Plan (1) Hypertensive urgency Current Visit: No Status: Acute Presented with systolic BP 220s. Currently, BP not well controlled; remains on BB, will resume home norvasc 10 mg once daily. Continue to hold diovan, HCTZ for now. (2) Chest pain Current Visit: Yes Status: Acute 1. Echo pending. Currently chest pain free; remains asymptomatic. Qualifiers: Chest pain type: unspecified Qualified Code(s): R07.9 - Chest pain, unspecified (3) Elevated troponin Current Visit: Yes Status: Acute Elevated troponins 0.06, 0.13, 0.11; however, no ischemic changes on EKG. Suspect type 2 demand ischemia with underlying CKD, and presented with hypertensive urgency. Cardiac rehab consult not warranted at this time. Echo pending; will assess LV function and determine recs; however, if chest pain continues will consider LHC. Currently, chest pain free. Discussed and reviewed with Dr. Bagley. (4) CAD (coronary artery disease) Current Visit: Yes Status: Chronic History of prior CABG 1998 with 2 grafts stents s/p CABG; Sees Dr. Yannick Echols at [facility]. Will obtain previous stress, cath, and echo records from [facility]. Continue ASA, BB, and added home statin to regimen. Qualifiers: Qualified Code(s): I25.10 - Atherosclerotic heart disease of tetlin coronary artery without angina pectoris (5) Chronic kidney disease Current Visit: Yes Status: Chronic Previous history of CKD. Recommend holding home diovan and HCTZ at this time related to preserving kidney function until echo results and further recs. Qualifiers: Chronic kidney disease stage: stage 3 (moderate) Qualified Code(s): N18.3 - Chronic kidney disease, stage 3 (moderate) Discussion w patient/family: The assessment and plan as outlined above was discussed with the patient and/or family members who expressed understanding and agreement. All questions were answered. Thank you for involving us in the care of your patient. Please call with any questions. History of Present Illness History of present illness: Mr. Perez is a 73 year old male Past Med Surg Social Fam HX - Past Medical History Medical history: coronary artery disease, diabetes, GERD, hyperlipidemia, hypertension, myocardial infarction, renal disease, thyroid disease, other Additional medical history: factor V Psychiatric history: anxiety, depression - Past Surgical History Surgical History: angioplasty/stent, coronary bypass (CABG), orthopedic, other (Right wrist, left ankle) Additional surgical history: RIGHT WRIST. LEFT ANKLE - Social History Smoking Status: Never smoker Smokeless Tobacco Status: No Alcohol use: none Drug use: none - Family History Mother Hx Family Neurologic Disorders: Yes (stoke) Father Hx Family Neurologic Disorders: Yes (stoke) Brother Hx Family Medical Disorders: Yes (Factor V deficiency) Medications and Allergies Colesevelam HCl [Welchol] 3 tab PO DAILY 06/02/15 [History] Fenofibric Acid (Choline) [Trilipix] 135 mg PO DAILY 06/02/15 [History] Levothyroxine [Synthroid] 112 mcg PO 0630 06/02/15 [History] Nebivolol HCl [Bystolic] 10 mg PO DAILY 06/02/15 [History] Omeprazole [PriLOSEC] 20 mg PO DAILY 06/02/15 [History] Rivaroxaban [Xarelto] 15 mg PO 1700 06/02/15 [History] hydroCHLOROthiazide [Hydrochlorothiazide] 12.5 mg PO DAILY 06/01/16 [History] Atorvastatin [Lipitor] 40 mg PO HS 10/19/18 [History] Ezetimibe [Zetia] 10 mg PO DAILY 10/19/18 [History] Amlodipine Besylate 10 mg PO DAILY 10/20/18 [History] Aspirin [Lo-Dose Aspirin EC] 81 mg PO DAILY 10/20/18 [History] Metformin HCl 500 mg PO BID 10/20/18 [History] Valsartan [Diovan] 320 mg PO DAILY 10/20/18 [History] Allergy/AdvReac Type Severity Reaction Status Date / Time CONTRAST DYE AdvReac Rash Uncoded 10/20/18 10:05 All Systems Review: The remainder of the systems were reviewed and are negative Physical Examination Vital Signs, Last 4 Hours Temp Pulse Resp Pulse Ox 10/21/18 08:11 97.6 F 62 16 99 Results 10/20/18 04:36 10/21/18 07:36 Lab Results 10/21/18 07:36 Sodium 142 Potassium 3.6 Chloride 109 H Carbon Dioxide 22 L BUN 22 Creatinine 1.40 H Glucose 133 H Calcium 9.0 Consult Discharge Plan - Plan Referrals: Augustine Burrell MD [Primary Care Provider] - (Appointment has been requested.)
[2018-10-21] MEDS: Valsartan 160 MG TABLET PO SCH (11:14)
[2018-10-21] MEDS: amLODIPine 5 MG TABLET PO SCH (11:15)
[2018-10-21] MEDS: Aspirin Enteric Coated 81 MG Tablet PO SCH (11:15)
[2018-10-21] MEDS: Isosorbide MONOnitrate (24 HR) 30 MG TAB.ER.24H PO SCH (11:28)
[2018-10-21] MEDS: *HR* Acetylcysteine 20% 600 MG/3 ML ORAL SYRINGE PO SCH ×3 (11:32→21:20)
[2018-10-21] MEDS: 0.9 % Sodium Chloride 1,000 ML IVC SCH ×2 (11:35→22:16)
[2018-10-21] MEDS ORDERED: 0.9 % Sodium Chloride 1,000 ML ONE ×2 (12:31→13:04)
[2018-10-21] MEDS ORDERED: *HR* Heparin 10,000 UNIT/10 ML VIAL ONE (12:31)
[2018-10-21] MEDS ORDERED: Heparin 1,000 UNITS/500 mL 500 ML ONE (12:31)
[2018-10-21] MEDS ORDERED: Nitroglycerin 1,000 MCG/10 ML VIAL IV ONE (12:31)
[2018-10-21] MEDS ORDERED: Iopamidol 125 ML INFUS..BTL ONE (12:31)
[2018-10-21] MEDS ORDERED: *HR* Midazolam HCl 2 MG/2 ML VIAL ONE ×2 (12:58→14:41)
[2018-10-21] MEDS ORDERED: *HR* FentaNYL (PF) 100 MCG/2 ML VIAL ONE (12:58)
--- NOTE | 2018-10-21 13:07 | Pre-Sedation Evaluation ---
Pre-sedation evaluation - Pre-sedation checklist Date of procedure: 10/21/18 Procedure: Left heart cath Recent Vitals: Last Vital Signs Temp 97.9 F 10/21/18 11:30 Pulse 68 10/21/18 11:30 Resp 18 10/21/18 11:30 BP 191/81 10/21/18 11:30 Pulse Ox 96 10/21/18 11:30 H&P (including ROS) documented in medical record: Yes Previous reaction to sedatives/anesthetics: Yes; explain in comment Dietary Status: NPO after Midnight Airway Assessment: Patient can open mouth completely, TMJ function normal, Micrognathia (under-bite, receding chin) absent, Neck with adequate range of motion Dentition: No loose teeth or bridges Possible difficult airway: No ASA Classification *see protocol: CLASS II-Mild systemic disease Plan of Care: Pt appropriate candidate for procedure/moderate/conscious sedation, Risks/benefits of procedure/sedation discussed w/ patient/family Cardiac Registry (Cardio Only) - Functional Capacity Functional Capacity: < 4 METS - Clincal Frailty Scale Clinical Frailty Scale: Vulnerable
[2018-10-21] MEDS ORDERED: *HR* Adenosine 6 MG/2 ML VIAL IVP ONE (14:18)
[2018-10-21] MEDS ORDERED: *HR* Ticagrelor 90 MG TABLET ONE (14:30)
[2018-10-21] MEDS ORDERED: *HR* Bivalirudin 250 MG VIAL IVC ONE (14:40)
--- NOTE | 2018-10-21 15:28 | Invasive Diagnostic Lab Proc ---
Name: Lee Perez Date of Study: 10/21/2018 Date: 1945 Ht: 72.0in Medical Record#: [id number] Age: 73 Wt: 209.44lb Gender: Male BSA: 2.17 Order #: [id number] BMI: 28.37 Physicians Procedure Physician: Maryan Zuniga MD, [facility] Referring MD: Referring MD: Staff Name Position Time In Pema Simpson RN Monitor 01:42 PM Sadi Kahn RN Sewer System Supervisor 01:42 PM Annel Sierra RT (R) Scrub 01:42 PM Catrina Stanton RT (R) Scrub 01:42 PM Panchito Nelson RN Nurse 01:51 PM Procedures Performed Procedure CORONARY ART/GRFT ANGIO S&I PRQ REVASC BYP GRAFT 1 VSL PRQ CARD JASON STENT W/ANGIO 1 VSL Pre-Procedure Checklist Informed consent is complete signed and on chart. H&P is on chart. ID band is on and ID verified with patient. Patient NPO for procedure The procedure was described for the patient and questions were answered. ECG is on chart. Plan of Care Patient will tolerate the procedure without complications. Adequate level of comfort will be maintained. Hemodynamics will remain stable Patient will recover from procedure without complications. Respiratory function will be maintained. Cardiac rhythm will remain stable. Patient temperature will be maintained. Patient and/or family have verbalized understanding of the procedure. Patient Education Chief Complaint/Reason for Test: Cardiac Cath Developmental Category: Geriatric (65+ years) Developmentally Appropriate for Age: Yes Learning Barriers: None Education Needs: Procedure Education Method: Verbal Information Taught: Cardiac Cath Educational Evaluation: Able to repeat information Intravenous Access Time IV Size Location DC'd Fluid/Drip Rate Units RN 0.9NaCl ml/hr Allergies No Known Allergies Vital Signs Time BP (mmHg) HR (bpm) O2 Sat. RR (bpm) LOC 01:48 PM / % 5 = Fully awake and oriented or at pre-proc level 01:48 PM / % 4 = Oriented but drowsy 02:03 PM / % 4 = Oriented but drowsy 02:23 PM / % 4 = Oriented but drowsy 02:38 PM / % 4 = Oriented but drowsy 01:51 PM 152 / 85 63 96 % 19 01:55 PM 146 / 73 57 96 % 12 02:00 PM 152 / 72 65 97 % 15 02:05 PM 145 / 77 60 97 % 16 02:10 PM 149 / 80 62 97 % 17 02:15 PM 148 / 71 59 96 % 15 02:20 PM 130 / 83 57 98 % 12 02:25 PM 138 / 72 58 98 % 13 02:30 PM 153 / 94 64 97 % 20 02:35 PM 169 / 91 66 96 % 18 02:41 PM 158 / 81 67 96 % 17 02:45 PM 155 / 81 63 93 % 13 02:50 PM 118 / 65 64 94 % 15 Procedural Medications Time Medication Dose Units Method Given By 01:48 PM Oxygen 2 L/min nasal cannula Sadi Kahn RN 01:48 PM Versed 2 mg Intravenous Sadi Kahn RN 01:48 PM Fentanyl 50 mcg Intravenous Sadi Kahn RN 01:58 PM Lidocaine 2% 20 ml Subcutaneous Maryan Zuniga MD, FACC 02:14 PM Angiomax 0.75mg/kg bolus: 14 ml Intravenous Sadi Kahn RN 02:14 PM Angiomax 1.75mg/kg/hr: 33 ml/hr Intravenous Sadi Kahn RN 02:16 PM Benadryl 25 mg Intravenous Sadi Kahn RN 02:27 PM Nitroglycerin 200 mcg Intracoronary Maryan Zuniga MD, FACC 02:28 PM Adenosine 360 mcg Intracoronary Maryan Zuniga MD, FACC 02:29 PM Adenosine 400 mcg Intracoronary Maryan Zuniga MD, FACC 02:30 PM Nitroglycerin 200 mcg Intracoronary Maryan Zuniga MD, FACC 02:41 PM Versed 1 mg Intravenous Sadi Kahn RN 02:41 PM Fentanyl 25 mcg Intravenous Sadi Kahn RN 02:46 PM Nitroglycerin 200 mcg Intracoronary Maryan Zuniga MD, FACC 02:53 PM Brilinta 180 mg Orally, crushed Sadi Kahn RN ASA Classification: CLASS II- Mild systemic disease (i.e. well-controlled diabetes, hypertension, asthma, cigarette smoking) Samantha Score Preprocedure Postprocedure Activity 2- Moves 4 extremities sustained head lift Activity 2- Moves 4 extremities sustained head lift Circulation 2- SBP +/= 20 points of pre-anesthetic level Circulation 2- SBP +/= 20 points of pre-anesthetic level Consciousness 2- Awake and alert oriented x 3 Consciousness 2- Awake and alert oriented x 3 O2 Saturation 2- Able to maintain O2 satruation of 92% on room air O2 Saturation 2- Able to maintain O2 satruation of 92% on room air Respiratory 2- Able to deep breathe and cough well Respiratory 2- Able to deep breathe and cough well Total Score 10 Total Score 10 Contrast Agent: Isovue Diagnostic Contrast: 163 ml Total Contrast: 163 ml Fluoro Dose: 64 mGy Procedure Log Time Note Enter By 01:42 PM Pt arrived to hospital laboratory technician 2 at 13:42 [facility] 01:42 PM Pema Simpson RN Position: Monitor Time in: :42 :42 PM Sadi Kahn RN Position: Sewer System Supervisor Time in: :42 [facility]:42 PM Annel Sierra RT (R) Position: Scrub Time in: 13:42 :42 PM Catrina Stanton RT (R) Position: Scrub Time in: 13:42 [facility] 01:42 PM Patient charges- Angio tray pack, Navilyst 3mm J, Pulse Oximetry and ACIST tubing and transducer :42 PM CathStat 01:47 PM Physician arrived 13:47 01:47 PM Loc and lo completed 01:47 PM Sign in performed according to hospital policy. Informed consent was obtained. :47 PM Procedure start 13:47 :48 PM Time: 13:48 Oxygen on at 2 L/min per nasal cannula by Sadi Kahn RN [facility] 01:48 PM Time: 13:48 Versed 2 mg Intravenous Given by Sadi Kahn RN nichellebria 01:48 PM Time: 13:48 Fentanyl 50 mcg Intravenous Given by Sadi Kahn RN nichellebria 01:48 PM Time: 13:48 Patient comfortable and pain free: Yes 01:48 PM Time: 13:48LOC: 5 = Fully awake and oriented or at pre-proc level [facility] 01:49 PM Vitals capture started with the following parameters, Patient=Adult, Interval=5 min, Initial Kdqtiuif=564 mmHg, Deflation Rate=3 mmHg, Cuff placed on Right Arm 01:50 PM ASA Class CLASS II- Mild systemic disease (i.e. well-controlled diabetes, hypertension, asthma, cigarette smoking) mm 01:50 PM Hair removed from procedure site in procedure lab using clippers. Bilateral groin prepped with Chloraprep by Sadi Kahn RN, then patient was draped. Skin intact. 01:51 PM Panchito Nelson RN Position: Nurse Time in: 13:51 mm 01:51 PM HR=63 bpm, BSZZ=400/85 mmhg, SpO2=96.0 %, Resp=19 B/min 01:55 PM HR=57 bpm, NOHG=888/73 mmhg, SpO2=96.0 %, Resp=12 B/min 01:55 PM Recorded ECG: HR=62 Condition=Condition 1 01:57 PM Time out was performed according to hospital policy. Conscious sedation and anesthesia was achieved (see medication log with in this report above) 01:58 PM Time: 13:58 20 ml Lidocaine 2% to right groin Subcutaneous Given by Maryan Zuniga MD, [facility] mm 01:59 PM Access obtained by percutaneous puncture. 5Fr 10cm Terumo [place] sheath placed in right Femoral artery. [id number] mm 01:59 PM 0.035 145cm Navilyst 3mmJ wire [id number] oumm 02:00 PM 5Fr FL 4 catheter inserted over the wire [facility] mm 02:00 PM HR=65 bpm, UIVO=024/72 mmhg, SpO2=97.0 %, Resp=15 B/min 02:00 PM Catheter removed mm 02:01 PM LCA angiography performed in multiple views. 02:01 PM Recorded Pressure: Ao, HR=53, Condition=Condition 1 (Aorta) Ao 107/56/82 02:02 PM Catheter removed tsmm 02:02 PM 5Fr FR 4 catheter inserted over the wire [facility] mm 02:03 PM Time: 13:48LOC: 4 = Oriented but drowsy oumm 02:03 PM Time: 13:48 Patient comfortable and pain free: Yes 02:03 PM RCA angiography performed in multiple views. tsoumm 02:03 PM Recorded Pressure: Ao, HR=58, Condition=Condition 1 (Aorta) Ao 120/70/94 02:04 PM Recorded Pressure: Ao, HR=60, Condition=Condition 1 (Aorta) Ao 117/68/93 02:04 PM SVG to the 1st OM angio performed in multiple views. tsoumm 02:05 PM HR=60 bpm, TJZT=355/77 mmhg, SpO2=97.0 %, Resp=16 B/min 02:05 PM Recorded Pressure: Ao, HR=63, Condition=Condition 1 (Aorta) Ao 125/76/100 02:05 PM SVG to the RPDA angio performed in multiple views. mm 02:06 PM Inflation device was opened. tsmm 02:08 PM Left RENEE to the LAD angio performed in multiple views. tsoumm 02:08 PM Recorded Pressure: Ao, HR=64, Condition=Condition 1 (Aorta) Ao 128/77/102 02:09 PM Catheter removed 02:09 PM Coronary Dominance: right ts 02:10 PM HR=62 bpm, HCHO=801/80 mmhg, SpO2=97.0 %, Resp=17 B/min 02:14 PM Sheath exchanged for a 6 Fr 11 cm Cordis Radha sheath [id number] 02:14 PM Time: 14:14 Angiomax 0.75mg/kg bolus: 14 ml Intravenous Given by Sadi Kahn RN db 02:14 PM Time: 14:14 Angiomax 1.75mg/kg/hr: 33 ml/hr Intravenous Given by Sadi Kahn RN [place] pump 02:14 PM 6Fr JR 4 Runway guide catheter was used to cannulate the PCI vessel successfully. reused? No mm 02:15 PM HR=59 bpm, BFWP=813/71 mmhg, SpO2=96.0 %, Resp=15 B/min 02:16 PM Time: 14:16 Benadryl 25 mg Intravenous Given by Sadi Kahn RN 02:16 PM Recorded Pressure: Ao, HR=57, Condition=Condition 1 (Aorta) Ao 143/64/97 02:17 PM Filter wire inserted to target lesion. tsoummers 02:20 PM HR=57 bpm, EANP=574/83 mmhg, SpO2=98.0 %, Resp=12 B/min 02:20 PM 2.0 mm x 12 mm Emerge Monorail balloon across target lesion- successful. reused? No tsoummers 02:21 PM Balloon inflated @ 8 mk for 20 seconds tsoumm 02:22 PM Balloon catheter removed intact. tsoummers 02:22 PM 4.0mm x 16mm Synergy drug-eluting stent across target lesion- successful Lot #[id number] tsoummers 02:23 PM Time: 14:03 Patient comfortable and pain free: Yes tsoummers 02:23 PM Time: 14:03LOC: 4 = Oriented but drowsy tsoumm 02:24 PM Stent deployed @ 12 mk for 30 seconds tsoumm 02:25 PM HR=58 bpm, AKXS=380/72 mmhg, SpO2=98.0 %, Resp=13 B/min 02:26 PM Stent balloon reinflated @ 16 mk for 26 seconds tsoumm 02:26 PM Stent delivery system removed intact. tsoumm 02:27 PM Time: 14:27 Nitroglycerin 200 mcg Intracoronary Given by Maryan Zuniga MD, [facility] tsoummers 02:28 PM Recorded Pressure: Ao, HR=63, Condition=Condition 1 (Aorta) Ao 106/55/78 02:28 PM Time: 14:28 Adenosine 360 mcg administered Intracoronary by Maryan Zuniga MD, [facility] tsoummers 02:29 PM Time: 14:29 Adenosine 400 mcg administered Intracoronary by Maryan Zuniga MD, [facility] tsoummers 02:30 PM HR=64 bpm, PNTU=824/94 mmhg, SpO2=97.0 %, Resp=20 B/min 02:30 PM Time: 14:30 Nitroglycerin 200 mcg Intracoronary Given by Maryan Zuniga MD, [facility] [place] 02:31 PM filter retrieval inserted tsoumm 02:32 PM filter wire removed intact tsmmers 02:33 PM Recorded Pressure: Ao, HR=66, Condition=Condition 1 (Aorta) Ao 157/78/112 02:34 PM Guide catheter removed intact. tsoummers 02:35 PM HR=66 bpm, JOZL=353/91 mmhg, SpO2=96.0 %, Resp=18 B/min 02:38 PM Time: 14:23LOC: 4 = Oriented but drowsy tsoummers 02:38 PM Time: 14:23 Patient comfortable and pain free: Yes tsoummers 02:41 PM HR=67 bpm, YEGL=641/81 mmhg, SpO2=96.0 %, Resp=17 B/min 02:41 PM 6Fr XB LAD 3.5 [place] Bright-Tip guide catheter was used to cannulate the PCI vessel successfully. reused? No tsoummers 02:41 PM Time: 14:41 Versed 1 mg Intravenous Given by Sadi Kahn RN tsoummers 02:41 PM Time: 14:41 Fentanyl 25 mcg Intravenous Given by Sadi Kahn RN tsnichellemmers 02:42 PM Lesion found in Proximal LAD. Pre Stenosis: 80 Pre SERENITY Flow: 3: Complete and Brisk Flow/Perfusion tsoummers 02:42 PM Proximal Left Anterior Descending Coronary Artery with 80% stenosis. If graft is supplying this territory, 0 % stenosis. tsoummers 02:42 PM Lesion found in Right PDA. Pre Stenosis: 99 Pre SERENITY Flow:2 slow <1 but >3 seconds tsoummers 02:43 PM .014 [place] 180cm guide wire across target lesion- successful. reused? No tsoummers 02:44 PM 2.75mm x 20mm Synergy drug-eluting stent across target lesion- successful Lot #[id number] tsoummers 02:45 PM Stent deployed @ 12 mk for 30 seconds tsoummers 02:45 PM HR=63 bpm, FHRD=396/81 mmhg, SpO2=93.0 %, Resp=13 B/min 02:46 PM Stent delivery system removed intact. tsoummers 02:46 PM Recorded Pressure: Ao, HR=63, Condition=Condition 1 (Aorta) Ao 152/72/106 02:46 PM Time: 14:46 Nitroglycerin 200 mcg Intracoronary Given by Maryan Zuniga MD, [facility] tsoummers 02:47 PM Guide wire removed intact. tsoummers 02:48 PM Guide catheter removed intact. tsoummers 02:48 PM Bolus angiogram of right Femoral complete: 4 ml/sec for a total of 7 mls [facility] 02:48 PM Procedure completed at 14:48 10/21/2018[facility] 02:48 PM Did you address SERENITY flow and Dominance? YesCoronary Dominance: right [facility] 02:50 PM HR=64 bpm, PGTK=099/65 mmhg, SpO2=94.0 %, Resp=15 B/min 02:51 PM Sign out completed: Radiation Dose 403.57 mGy, 63.7 Gy/cm2 Fluoro Time: 12.9 Isovue 370 - 200ml contrast 163 ml given by Maryan Zuniga MD, FAC. Complications: None. The patient was discharged out of the lab rn in stable condition. Sedation minutes 70. Cardiac Rehab Consult needed: Yes. Confirmed administered medications: Yes [facility] 02:51 PM Isovue 370 - 200ml,2 Bottle(s) used. [facility] 02:53 PM Time: 14:38 Patient comfortable and pain free: Yes mm 02:53 PM Time: 14:38LOC: 4 = Oriented but drowsy tsoumm 02:54 PM Time: 14:53 Brilinta 180 mg Orally, crushed Given by Sadi Kahn RN [facility] 02:54 PM Sheath left in place to be pulled on floor/holding area tsoumm 02:54 PM new angiomax bag started at this time per verbal order Dr. Zuniga by Sadi Kahn [facility] [place] 02:55 PM Estimated Blood Loss: less than 20cc tsoumm 02:55 PM Post ECG NSR tsoumm 02:55 PM Post Blood Pressure 118/65 [facility] [place] 02:55 PM Information taught Cardiac Cath and PCI [facility] [place] 02:55 PM Education needs Procedure, Plan of Care, and Responsibilities of Patient in Care [facility] [place] 02:55 PM Learning barriers :None [facility] [place] 02:55 PM Education Methods Verbal tsoumm 02:55 PM Education evaluation Able to repeat information [facility] [place] 02:55 PM Site status No bleeding/ No Hematoma - Rt Groin as reported by Annel Sierra RT (R) at 14:55 [facility] [place] 02:55 PM Opsite applied tsoumm 02:56 PM Plavix, Effient or Brilinta given Yes tsoummers 02:56 PM Family placed in consult room. tsoummers 02:56 PM Lesion found in Proximal RCA. Pre Stenosis: 99 Pre SERENITY Flow: tsoummers 02:56 PM Lesion found in Mid RCA. Pre Stenosis: 100 Pre SERENITY Flow: tsoummers 02:58 PM Lesion found in Mid LAD. Pre Stenosis: 90 Pre SERENITY Flow: tsoummers 02:58 PM Lesion found in Proximal Circumflex. Pre Stenosis: 100 Pre SERENITY Flow: tsoummers 02:58 PM Mid/Distal Left Anterior Descending Coronary Artery and diagonal branches with 90% stenosis. If graft is supplying this area, 0 % stenosis tsoummers 02:58 PM Circumflex, Obtuse Marginal, Left Posterior Descending, and Left Posterolateral Coronary Arteries with 100 % stenosis. If graft is supplying this area, 0 % stenosis tsoummers 02:58 PM Right Coronary, Right Posterior Descending Arteries with Right Posterolateral and Acute Marginal branches with 100 % stenosis. If graft is supplying this area, 0 % stenosis tsoummers 02:59 PM Patient out of room: 14:59 tsoummers 02:59 PM Delay to floor No tsoummers 03:01 PM Report given to anil HERNANDEZ Pt taken to 2N Room #13. 14:59 tsoummers Complications Complication None Hemodynamics Pressures Site Systolic/A Wave Diastolic/V Wave Mean AO 107 56 82 AO 120 70 94 AO 117 68 93 AO 125 76 100 AO 128 77 102 AO 143 64 97 AO 106 55 78 AO 157 78 112 AO 152 72 106 Post Procedure Information Blood Pressure: 118/65 mmHg Rhythm: NSR Post procedural instructions were given Site Checks Time Location Status Staff Sheath In? Note 02:55 PM Rt Groin No bleeding/ No Hematoma Annel Sierra RT (R) Pulses Time Site Pre-Procedure Post-Procedure Note Bilateral DP & PT 1+ Bilateral radial 2+ Updated by Pema Simpson RN on 10/21/2018 3:23:01 PM electronically signed on 10/21/2018 3:23:23 PM with status of Final
[2018-10-21] MEDS ORDERED: 0.9 % Sodium Chloride 1,000 ML IVC SCH (15:30)
--- NOTE | 2018-10-21 15:59 | Electrocardiograph Report ---
[place] [id number] Test Date: 2018-10-20 Pat Name: Lee Perez Department: 113 Room: 2N13 Gender: M Population Health Manager: : 1945 Requested By: Brennon Randall Order Number: [id number] Reading MD: Yannick Zuniga Measurements Intervals [place] Rate: 74 P: -15 [place]: 274 QRS: 67 QRSD: 114 T: 7 QT: 390 QTc: 418 Interpretive Statements SINUS RHYTHM WITH FIRST DEGREE AV BLOCK WITH OCCASIONAL SUPRAVENTRICULAR PREMATURE COMPLEXES ANTEROLATERAL ST AND T WAVE CHANGES COIULD BE DUE TO ISCHEMIA Electronically Signed On 10-21-2018 15:58:19 EDT by Yannick Zuniga
--- NOTE | 2018-10-21 16:08 | Internal Med Progress Note ---
Hospitalist Progress Note - Encounter Date of Encounter: 10/21/18 Time of Encounter: 16:06 - Subjective Interval History: Patient was seen and examined bedside. Just came back from [facility]. Denied any more active chest pain. He is resting comfortably. - Exam Vitals: Temp Pulse Resp BP Pulse Ox 97.6 F 55 16 134/72 94 10/21/18 15:25 10/21/18 15:45 10/21/18 15:45 10/21/18 15:45 10/21/18 15:45 Exam: Gen: Alert, awake, Oriented to time,place and person Chest: Diminished breath sounds B/L, No wheezing, No crackles, No rales Heart: S1S2+ RRR No murmurs Abd: Soft, NT, BS +, No organomegaly Ext: No edema, pulses are palpable, No calf tenderness Neuro : No acute focal neuro deficits noticed Skin: No rash. - Assessment and Plan (1) Chest pain Current Visit: Yes Status: Acute Assessment and Plan: He did have another CP episode last night Pt was placed on Nitro gtt Now he went for [facility].. He did have PCI x 2 today d/c Heparin gtt cont home meds ASA, Brilinta, Statin, Bystolic and Diovan Cont imdur appreciate cardiology recommendations (2) CAD (coronary artery disease) Current Visit: Yes Status: Chronic Assessment and Plan: cont home meds (3) Chronic kidney disease Current Visit: Yes Status: Chronic Assessment and Plan: At baseline. Avoid nephrotoxic medicine Since he went for [facility].. started him on Acetylecysteine x 4 doses and Gentle IV hydration continue close monitoring creatinine (4) Hypertensive urgency Current Visit: No Status: Acute Assessment and Plan: His blood pressure seems to be little better now continue home medication Norvasc 10 mg, Bystoic, and Diovan Card started him on Imdur (5) Elevated troponin Current Visit: Yes Status: Acute Assessment and Plan: His trop peaked at 0.13 and now started trending down Seems to be type 1 NSTEMI s/p C with PCI x 2 Card is on board appreciate recommendations (6) Diabetes Current Visit: Yes Status: Acute Assessment and Plan: on ADA diet on ISS (7) DVT prophylaxis Current Visit: Yes Status: Acute Assessment and Plan: on SQ Heparin - Time Spent with Patient Total time spent is greater than 50% in coordination of care (as documented) at patient's floor/unit and/or counseling patient: Internal Medicine: Result - Labs CBC & Chem 7: 10/20/18 04:36 10/21/18 07:36 Labs: BMP 10/21/18 07:36 Sodium 142 Potassium 3.6 Chloride 109 H Carbon Dioxide 22 L BUN 22 Creatinine 1.40 H Glucose 133 H Calcium 9.0 - ABG Interpretation ABG results: PT/INR, D-dimer PT 13.7 Seconds (9.4-12.1) H 10/20/18 09:08 Consult Discharge Plan - Plan Referrals: Augustine Burrell MD [Primary Care Provider] - (Appointment has been requested.) ____ (1) Chest pain Qualifiers: Chest pain type: unspecified Qualified Code(s): R07.9 - Chest pain, unspecified (2) CAD (coronary artery disease) Qualifiers: Qualified Code(s): I25.10 - Atherosclerotic heart disease of [place] coronary artery without angina pectoris (3) Chronic kidney disease Qualifiers: Chronic kidney disease stage: stage 3 (moderate) Qualified Code(s): N18.3 - Chronic kidney disease, stage 3 (moderate) (6) Diabetes Qualifiers: Diabetes mellitus type: type 2 Diabetes mellitus snf insulin use: without snf use Diabetes mellitus complication status: with hyperglycemia Qualified Code(s): E11.65 - Type 2 diabetes mellitus with hyperglycemia
[2018-10-21] MEDS: *HR* Heparin 5,000 UNIT/ML VIAL SQ SCH (17:10)
[2018-10-21] MEDS ORDERED: *HR* Atropine Sulfate 1 MG/10 ML SYRINGE ONE (18:19)
[2018-10-22 02:13] LABS: Hematocrit 37.5 % (37.5-50.1); Hemoglobin 12.4 g/dL (12.9-16.9); Mean Corpuscular HGB Conc 33.1 g/dL (31.6-35.5); Mean Corpuscular Hemoglobin 28.7 pg (28.0-33.3); Mean Corpuscular Volume 86.8 fL (83.0-100.0); Mean Platelet Volume 10.1 fL (9.4-12.4); Platelet Count 176 K/mcL (140-400); Red Blood Count 4.32 M/mcL (4.19-5.50); Red Cell Distribution Width 14.4 % (11.5-14.5); White Blood Count 7.2 K/mcL (4.3-11.1)
[2018-10-22 02:32] LABS: Calcium 8.7 mg/dL (8.6-10.3); Magnesium 1.9 mg/dL (1.6-2.6); Potassium 3.5 mEq/L (3.5-5.1)
[2018-10-22] MEDS: *HR* Heparin 5,000 UNIT/ML VIAL SQ SCH (06:14)
[2018-10-22 07:30] VITALS: BP 140/74
[2018-10-22] MEDS: Insulin LISPRO 300 UNITS/3 ML VIAL SQ SCH ×2 (07:43→12:41)
[2018-10-22] MEDS: amLODIPine 5 MG TABLET PO SCH (07:45)
[2018-10-22] MEDS: Isosorbide MONOnitrate (24 HR) 30 MG TAB.ER.24H PO SCH (07:45)
[2018-10-22] MEDS: Aspirin Enteric Coated 81 MG Tablet PO SCH (07:46)
[2018-10-22] MEDS: Valsartan 160 MG TABLET PO SCH (07:46)
--- NOTE | 2018-10-22 07:58 | Electrocardiograph Report ---
[place] [id number] Test Date: 2018-10-21 Pat Name: Lee Perez Department: 110 Room: 2N13 Gender: M Ceiling Cleaner: : 1945 Requested By: Maryan Zuniga Order Number: [id number] Reading MD: Tyrone Gallego Measurements Intervals [place] Rate: 52 P: 63 HI: 261 QRS: -5 QRSD: 108 T: 55 QT: 463 QTc: 443 Interpretive Statements SINUS BRADYCARDIA WITH FIRST DEGREE AV BLOCK NONSPECIFIC ST & T-WAVE ABNORMALITY Electronically Signed On 10-22-2018 7:57:37 EDT by Tyrone Gallego
[2018-10-22] MEDS ORDERED: *HR* Ticagrelor 90 MG TABLET PO SCH (09:00)
[2018-10-22] MEDS: *HR* Acetylcysteine 20% 600 MG/3 ML ORAL SYRINGE PO SCH (09:34)
--- NOTE | 2018-10-22 10:19 | Cardiology Progress Note ---
<Neri Atwood - Last Filed: 10/22/18 12:10> Date of Encounter: 10/22/18 Time of Encounter: 09:00 Assessment and Plan (1) Chest pain Current Visit: Yes Status: Acute 1. Denies current chest pain s/p PCI x 2 stents. 2. Discussed with pt. to continue Imdur daily upon discharge and defer to primary supervisor cutting and sewing room for further recs. 3. Cardiology to sign off. Discussed and reviewed with Dr. Bagley. Qualifiers: Chest pain type: unspecified Qualified Code(s): R07.9 - Chest pain, unspeci fied (2) CAD (coronary artery disease) Current Visit: Yes Status: Chronic 1.History of prior CABG 1998 with 2 grafts stents s/p CABG; previous stress, cath, and echo records requested from [facility]. Optimal medical therapy of patient's disease s/p successful PTCA/Drug-Eluting Stent placement in the SVG to RPDA. Patient had successful Drug-Eluting Stent placement in the proximal LAD. 2. Discussed aggressive risk factor modification including heart healthy diet, weight reduction, lifestyle modifications. 3. Continue dual antiplatelet therapy. Currently on Brilinta, ASA. Continue statin, BB. Discussed with pt. to possibly stop ASA after 30 days. Defer to primary supervisor cutting and sewing room. 4. Pt. agrees to to f/u with his supervisor cutting and sewing room Dr. Yannick Echols at [facility] in two weeks. Pt. says he will call and schedule today. 5. Cardiac rehab consulted. 6. Access site management reviewed with pt. Scant echymosis with no visible hematomas. 7. Discussed and reviewed with Dr. Bagley. Qualifiers: Coronary Disease-Associated Artery/Lesion type: bypass graft Associated angina: with unspecified angina Qualified Code(s): I25.709 - Atherosclerosis of coronary artery bypass graft(s), unspecified, with unspecified angina pectoris (3) Hypertensive urgency Current Visit: Yes Status: Acute 1. Presented with systolic BP 220s. 2. During admission, BP is better controlled with SBP 140s. 2. Recommend continue home medications for BP; HCTZ, Diovan, Bystolic, Amlodipine (4) Elevated troponin Current Visit: Yes Status: Acute 1. Elevated troponins in the setting of chest pain. Pt. is s/p successful PTCA/Drug-Eluting Stent placement in the SVG to RPDA. Patient had successful Drug-Eluting Stent placement in the proximal LAD. (5) DVT (deep venous thrombosis) Current Visit: No Status: Chronic 1. Discussed history of DVT; believes left lower leg and he states that he takes Xarelto previously prescribed for chronic DVT prophylaxis outside facility. He sees Dr. Echols at [facility] and would prefer to continue medication. Agrees to f/u with his supervisor cutting and sewing room in two weeks. Discussed with Dr. Bagley and agrees. Recommend to restart Xarelto at discharge and defer to primary supervisor cutting and sewing room. Qualifiers: DVT location: lower extremity Chronicity: chronic Laterality: left Qualified Code(s): I82.502 - Chronic embolism and thrombosis of unspecified deep veins of left lower extremity (6) Chronic kidney disease Current Visit: No Status: Chronic Renal function appears to be at baseline. Continue to monitor during stay. Qualifiers: Chronic kidney disease stage: stage 3 (moderate) Qualified Code(s): N18.3 - Chronic kidney disease, stage 3 (moderate) Discussion w patient/family: The assessment and plan as outlined above was discussed with the patient and/or family members who expressed understanding and agreement. All questions were answered. Thank you for involving us in the care of your patient. Please call with any questions. Subjective Principal diagnosis: Chest pain Interval history: Pt. denies chest pain, SOB dizziness, palpitations, fever, chills. Objective Vital Signs, Last 4 Hours Pulse Resp BP 10/22/18 07:27 84 18 140/74 General: Conversant, No Apparent Distress HEENT: Atraumatic, Normocephaly, Mucus Membranes Moist Neck: No JVD, Normal carotid pulses Cardiac: Reg Rate and Rhythm, Normal S1 and S2, No Murmur Lungs: Normal Breath Sounds, No Wheeze, Rales, Rhonchi Neuro: Alert and responsive, No focal deficits noted Abdomen: Soft, Non-Tender Skin: No rashes noted on visualized skin, Other (Right groin scant ecymosis without any hematomas. ) Musculoskeletal: No Chest Wall Tenderness Extremities: No Clubbing, No Cyanosis, No Edema, Normal Pulses Results 10/22/18 01:59 10/22/18 01:59 Lab Results 10/22/18 10/22/18 01:59 01:59 WBC 7.2 Hgb 12.4 L Hct 37.5 Plt Count 176 Sodium 141 Potassium 3.5 Chloride 112 H Carbon Dioxide 22 L BUN 20 Creatinine 1.53 H Glucose 201 H Calcium 8.7 Magnesium 1.9 Cardiology Impressions Laboratory Tests 10/19/18 10/19/18 10/20/18 16:16 22:44 04:36 Troponin I 0.06 H* 0.13 H* 0.11 H* Chest X-Ray 10/19/18 15:36 IMPRESSION: No acute process. Stable cardiomegaly D/ / Claude Ryan MD / Claude Ryan MD Interpreting Provider: Claude Ryan MD Echocardiogram 10/19/18 22:22 Impressions: LVEF 55%. Normal LV chamber size, wall thickness and overall function. Mild segmental left ventricular systolic dysfunction. Atypical septal motion consistent with post-operative status. Moderate left ventricular diastolic dysfunction. Normal right ventricular structure and function. No evidence of pulmonary hypertension. No significant valvular dysfunction. Left Ventricular Wall Motion: Rest Echo Findings The mid inferior lateral and basal inferior lateral gomez were hypokinetic. All other wall segments showed normal motion. CORONARY ANGIOGRAPHY W/ GRAFTS PCI of Bypass Graft Stent w/ PTCA Single Major Vessel Indications: ACS > 24 hrs NSTE - ACS Impressions: There is severe three vessel coronary artery disease. S/P CABG 3 of 4 patent bypass grafts. Patient had successful PTCA/Drug-Eluting Stent placement in the SVG to RPDA. Patient had successful Drug-Eluting Stent placement in the proximal LAD. Recommendations: Optimal medical therapy of patient's disease. Aggressive risk factor modification. Dual antiplatelet therapy. Coronary Dominance: right Lesion Findings/Interventions * Left Main Coronary Artery The LMCA is angiographically free of disease. * Left Anterior Descending There is a 20 mm long, 80% stenosis in the Proximal LAD. The lesion has a SERENITY flow of 3. An intervention was performed on the Proximal LAD with a final stenosis of 0%. There were no lesion complications. Proximal to large diagonal 1 branch which is not grafted. There is a 90% stenosis in the Mid LAD. Mid/distal LAD fill via hopi and patent SERRANO graft. * Circumflex The 2nd Marginal fills via left to left collaterals. There is a 100% instent restenosis in the Proximal Circumflex. * Right Coronary Artery There is a 99% stenosis in the Proximal RCA. There is a 100% stenosis in the Mid RCA. There is a 16 mm long, 99% stenosis in the SVG to Right PDA. The lesion has a SERENITY flow of 2. An intervention was performed on the Right PDA with a final stenosis of 0%. There were no lesion complications. The final SERENITY flow was 3. Additional Findings: Grafts * The left internal mammary graft to the Mid LAD is patent. * The saphenous vein graft to the 1st Marginal has a 60% stenosis in the body of graft- diffusely diseased, serial lesions * The sequential saphenous vein graft to the 2nd Marginal has a 100% instent restenosis in the body of graft. * The saphenous vein graft to the Right PDA has a 99% stenosis in the body of graft. An Intervention was performed with final stenosis 0%. 4.0 x 16 Synergy. Complications: None - Imaging and Cardiology Chest Xray: report reviewed Echo: report reviewed Cardiac cath: report reviewed - EKG Interpretation EKG results cardiology: sinus rhythm, no diagnostic ischemia, other (SInus Yadiel) Consult Discharge Plan - Plan Referrals: Umu Garcia [Other] - 10/23/18 7:45 am (Dr. Echols has no appointments until November so they made it with his Nurse Practioner) Augustine Burrell MD [Primary Care Provider] - 10/29/18 8:30 am (Appointment has been requested.) <Paula Bagley - Last Filed: 10/22/18 13:07> Date of Encounter: 10/22/18 Assessment and Plan Discussion w patient/family: I examined this patient and my medical decision-making was reviewed with the VELOCITY SHOOTER. I agree with the documented findings, disposition and treatment plan as described. Results 10/22/18 01:59 10/22/18 01:59 Lab Results 10/22/18 10/22/18 01:59 01:59 WBC 7.2 Hgb 12.4 L Hct 37.5 Plt Count 176 Sodium 141 Potassium 3.5 Chloride 112 H Carbon Dioxide 22 L BUN 20 Creatinine 1.53 H Glucose 201 H Calcium 8.7 Magnesium 1.9
--- NOTE | 2018-10-22 14:25 | Discharge Summary ---
- NOTES TO OUTPATIENT PROVIDER Notes to Outpatient Provider: Post hospital discharge for acute coronary syndrome patient is now on dual antiplatelet therapy status post left heart catheter with stenting. He needs cardiology follow-up with his established flame cutter. Patient also on chronic anticoagulation due to his hx of factor V laiden deficiency. Treatment Plan discussion we need to be held as an outpatient to reevaluate his need for anticoagulation since antiplalet therapy is indicated status post recent left heart catheter and stenting. Serum creatinine is 1.53 recent left heart cath, patient will not be discharged on metformin, Amaryl 2 mg started he will need close outpatient follow-up Date of Encounter: 10/22/18 Time of Encounter: 14:17 - Discharge Diagnosis (1) Acute coronary syndrome with high troponin Priority: Primary Status: Acute Assessment and Plan: s/p left heart catheter with stenting, but cardiology note dual antiplatelet therapy is indicated, patient also on anticoagulation therapy with xarelto due to his history of factor 5 Leyden deficiency. Discharge planning medications discussion was held with the patient, and his family amongst those present were his Deepika she can be reached at cell phone [phone], his daughter and a female family friend. Discussed his increased risk for bleed given the dual antiplatelet tx as well as Xarelto. He denies any history of GI bleed, has had at least 2 colonoscopies Denies history of polyps. Patient also denies any history of falls. He was strongly advised to be on fall precaution at home. Patient and his appears to have good understanding and comprehension of our discussion. He has appointment scheduled with his established flame cutter tomorrow and is to follow-up with his primary care physician within 7 days so as to reevaluate his medication and need for chronic anticoagulation (2) Hypertensive urgency Priority: Primary Status: Acute Assessment and Plan: Resolved the patient was normotensive for the past 3 days ranging from 124-140 systolic 63-74 diastolic (3) Diabetes Priority: Secondary Status: Acute Assessment and Plan: Patient's serum creatinine is 1.53 with a recent heart catheter with IV contrast would not discharge home on metformin patient did state that he recently was diagnosed with diabetes within the past few weeks he has not tried any other me dications apart from metformin which according to the patient he has been having some GI related side effects and was not really taking. Discussed with patient that he will be discharged on Amaryl 2 mg with close follow-up with his primary care physician Qualifiers: Diabetes mellitus type: type 2 Diabetes mellitus chcf insulin use: marvel mckeon chcf use Diabetes mellitus complication status: with hyperglycemia Qualified Code(s): E11.65 - Type 2 diabetes mellitus with hyperglycemia (4) DVT prophylaxis Priority: Secondary Status: Acute Assessment and Plan: discharged today (5) Chronic kidney disease Priority: Secondary Status: Chronic Assessment and Plan: Serum creatinine appears to be at baseline and did not back to 2014 ranges from 1.4-2, at discharge is 1.53 Qualifiers: Chronic kidney disease stage: stage 3 (moderate) Qualified Code(s): N18.3 - Chronic kidney disease, stage 3 (moderate) (6) CAD (coronary artery disease) Priority: Primary Status: Chronic Assessment and Plan: Patient is some beta sylvia, angiotensin receptor sylvia and dual antiplatelet tx. s/p left heart catheter with stenting, but cardiology note dual antiplatelet therapy is indicated, patient also on anticoagulation therapy with xarelto due to his history of factor 5 Leyden deficiency. Discharge planning medications discussion was held with the patient, and his family amongst those present were his Deepika she can be reached at cell phone [phone], his daughter and a female family friend. Discussed his increased risk for bleed given the dual antiplatelet tx as well as Xarelto. He denies any history of GI bleed, has had at least 2 colonoscopies Denies history of polyps. Patient also denies any history of falls. He was strongly advised to be on fall precaution at home. Patient and his appears to have good understanding and comprehension of our discussion. He has appointment scheduled with his established flame cutter tomorrow and is to follow-up with his primary care physician within 7 days so as to reevaluate his medication and need for chronic anticoagulation Qualifiers: Coronary Disease-Associated Artery/Lesion type: bypass graft Associated angina: with unspecified angina Qualified Code(s): I25.709 - Atherosclerosis of coronary artery bypass graft(s), unspecified, with unspecified angina pectoris Hospital course: Mr. Perez is a 73 year old male was hospitalized for chest pain and acute coronary syndrome. He had a left heart catheter and had stenting was started on dual anti-platelet therapy. Of notes/ patient also on anticoagulation therapy with xarelto due to his history of factor 5 Leyden deficiency. Discharge planning medications discussion was held with the patient, and his family amongst those present were his Deepika she can be reached at cell phone [phone], his daughter and a female family friend. Discussed his increased risk for bleed given the dual antiplatelet tx as well as Xarelto. He denies any history of GI bleed, has had at least 2 colonoscopies Denies history of polyps. Patient also denies any history of falls. He was strongly advised to be on fall precaution at home. Patient and his appears to have good understanding and comprehension of our discussion. He has appointment scheduled with his established flame cutter tomorrow and is to follow-up with his primary care physician within 7 days so as to reevaluate his medication and need for chronic anticoagulation. He was also noted to be on metformin due to his serum creatinine ranged anywhere from 1.4 to 2, at discharge is 1.53 as such metformin is uses contraindicated. Patient states that he is never tried any other medications such be discharged on Amaryl 2 mg with close follow-up with his primary care physician. Discussed with patient that diabetes is a cardio v ascular risk factor that needs to be addressed. Discharge discussed with: patient, family, nurse, social work, case management - Time Spent with Patient Total time spent providing and/or coordinating discharge services:38 mins Specific discharge activities: Please make sure you follow up with your flame cutter outpatient primary care physician on the scheduled appointments since your high risk for bleed as discussed - Discharge Medications Prescriptions: New Glimepiride [Amaryl] 2 mg PO 0800 #30 tablet Ticagrelor [Brilinta] 90 mg PO BID 30 Days #60 tablet Isosorbide MONOnitrate (24 HR) [Imdur] 30 mg PO DAILY #30 tab.er.24h Atorvastatin [Lipitor] 80 mg PO HS 30 Days tablet Continued Levothyroxine [Synthroid] 112 mcg PO 0630 Rivaroxaban [Xarelto] 15 mg PO 1700 Nebivolol HCl [Bystolic] 10 mg PO DAILY Fenofibric Acid (Choline) [Trilipix] 135 mg PO DAILY Omeprazole [PriLOSEC] 20 mg PO DAILY Ezetimibe [Zetia] 10 mg PO DAILY Amlodipine Besylate 10 mg PO DAILY Aspirin [Lo-Dose Aspirin EC] 81 mg PO DAILY Valsartan [Diovan] 320 mg PO DAILY Discontinued Colesevelam HCl [Welchol] 3 tab PO DAILY hydroCHLOROthiazide [Hydrochlorothiazide] 12.5 mg PO DAILY Atorvastatin [Lipitor] 40 mg PO HS Metformin HCl 500 mg PO BID Home Medications: Fenofibric Acid (Choline) [Trilipix] 135 mg PO DAILY 06/02/15 [History] Levothyroxine [Synthroid] 112 mcg PO 0630 06/02/15 [History] Nebivolol HCl [Bystolic] 10 mg PO DAILY 06/02/15 [History] Omeprazole [PriLOSEC] 20 mg PO DAILY 06/02/15 [History] Rivaroxaban [Xarelto] 15 mg PO 1700 06/02/15 [History] Ezetimibe [Zetia] 10 mg PO DAILY 10/19/18 [History] Amlodipine Besylate 10 mg PO DAILY 10/20/18 [History] Aspirin [Lo-Dose Aspirin EC] 81 mg PO DAILY 10/20/18 [History] Valsartan [Diovan] 320 mg PO DAILY 10/20/18 [History] Atorvastatin Calcium [Lipitor] 80 mg PO QDPC #30 tablet 10/22/18 [Rx] Glimepiride [Amaryl] 2 mg PO 0800 #30 tablet 10/22/18 [Rx] Isosorbide MONOnitrate (24 HR) [Imdur] 30 mg PO DAILY #30 tab.er.24h 10/22/18 [Rx] Ticagrelor [Brilinta] 90 mg PO BID 30 Days #60 tablet 10/22/18 [Rx] Allergies/Adverse Reactions: Allergy/AdvReac Type Severity Reaction Status Date / Time CONTRAST DYE AdvReac Rash Uncoded 10/20/18 10:05 Date of admission: 10/21/18 16:25 Primary care physician: Augustine Burrell MD Consults: 10/20/18 05:28 Consult to Cardiology [CONS] Routine Comment: Consulting Provider: Ana Paula Blanco Reason for Consult: Elevated troponin, significant history of CAD Call Completed: No 10/21/18 15:17 Consult to Cardiac Rehabilitation-Phase1 [CONS] Routine Comment: Reason for Consult: post op PCI Call Completed: Yes Discharging clinician: Enovwo E Ohwofahworaye Anticipated date of discharge: 10/22/18 - Constitutional Vitals: Temp Pulse Resp BP Pulse Ox 99.0 F 84 18 140/74 94 10/22/18 04:06 10/22/18 07:27 10/22/18 07:27 10/22/18 07:27 10/22/18 04:06 General appearance: Present: cooperative, A&O X 3, pleasant, no acute distress, answers questions appropriately Exam: GEN: NAD, A&O x 3, Pleasant and conversant, , daughter, female family friend at his bedside SKIN: [place] warm acyanotic not jaundice HEART: RRR, no murmurs LUNGS: CTA no wheeze or crackles, overall non labored ABDOMEN; Soft, non tender or distended, BS x 4 normactive EXT: No LE edema, Pedal pulses 1+, radial pulses 2+ PSYCH: Mood and affect is appropriate - Patient Status Disposition: Home, Self-Care Condition: Good Functional capacity at discharge: independent ambulation Overall status at discharge: patient is back to baseline - Discharge Instructions Instructions: Diabetes Mellitus Type 2 in Adults (DC) Follow Up With: Umu Garcia [Other] - 10/23/18 7:45 am (Dr. Echols has no appointments until November so they made it with his Nurse Practioner) Augustine Burrell MD [Primary Care Provider] - 10/29/18 8:30 am (Appointment has been requested.) Additional Instructions: Avoid strenuous activity, fall precaution as discussed make sure you take medications as prescribed and make sure you see your flame cutter and primary care physician on the scheduled appointment to discuss your high risk for bleed medications - Diet and Activity Activity: resume usual activities as tolerated Diet: diabetic diet, low fat, low cholesterol, low salt diet
== END 2018-10-22 15:14 | disposition home or self-care (01) | DRG 246 ==
LOC: 3BNU 15:30 → EMEROOARM 15:30 → 3BNU 19:51 → 2NNU 10-21 15:39 → SUATTDRO 10-21 16:25
PROVIDERS: ADMIT Internal Medicine Nephrology; ATTEND Pharmacist

== ENCOUNTER 2021-03-20 00:55 | Inpatient (IN) ==
[2021-03-21] MEDS ORDERED: Naloxone 0.4 MG/ML INJ IVP PRN (10:55)
[2021-03-21] MEDS: Furosemide 40 MG/4 ML VIAL IVP ONE (12:40)
[2021-03-21] MEDS: Dexamethasone Sodium Phos/PF 10 MG/ML VIAL IVP SCH (12:41)
[2021-03-21] MEDS ORDERED: Dextrose Gel 15 GM/37.5 ML TUBE PO PRN ×2 (13:18)
[2021-03-21] MEDS ORDERED: *HR* Dextrose 50 % in Water (Syg) 50 ML SYRINGE IVP PRN (13:18)
[2021-03-21] MEDS ORDERED: D5% in Water 1,000 ML IVC PRN (13:18)
[2021-03-21] MEDS: Insulin LISPRO 300 UNITS/3 ML VIAL SUBQ SCH (17:44)
[2021-03-21] MEDS: Acetaminophen 325 MG TABLET PO PRN (20:03)
[2021-03-21 21:16] LABS: Estimated Average Glucose 146 mg/dl; Hemoglobin A1C 6.7 %
[2021-03-21 21:18] LABS: Adenovirus Not Detected (Not Detect); Bordetella Pertussis Not Detected (Not Detect); Chlamydophila pneumoniae Not Detected (Not Detect); Coronavirus 229E Not Detected (Not Detect); Coronavirus HKU1 Not Detected (Not Detect); Coronavirus NL63 Not Detected (Not Detect); Coronavirus OC43 Not Detected (Not Detect); Human Metapneumovirus Not Detected (Not Detect); Human Rhinovirus/Enterovirus Not Detected (Not Detect); Influenza A Subtype 2009 H1 Not Detected (Not Detect); Influenza B Not Detected (Not Detect); Mycoplasma pneumoniae Not Detected (Not Detect); Parainfluenza Virus 1 Not Detected (Not Detect); Parainfluenza Virus 2 Not Detected (Not Detect); Parainfluenza Virus 3 Not Detected (Not Detect); Parainfluenza Virus 4 Not Detected (Not Detect); Respiratory Syncytial Virus Not Detected (Not Detect)
[2021-03-21] MEDS: Insulin DETEMIR 100 UNIT/ML X5UNITS SUBQ SCH (21:18)
[2021-03-21 21:20] LABS: SARS-CoV-2 DETECTED (Not Detect)
[2021-03-22 06:18] LABS: Hematocrit 39.9 % (37.5-50.1); Hemoglobin 12.8 g/dL (12.9-16.9); Mean Corpuscular HGB Conc 32.1 g/dL (31.6-35.5); Mean Corpuscular Hemoglobin 28.1 pg (28.0-33.3); Mean Corpuscular Volume 87.5 fL (83.0-100.0); Mean Platelet Volume 10.9 fL (9.4-12.4); Platelet Count 290 K/mcL (140-400); Red Blood Count 4.56 M/mcL (4.19-5.50); Red Cell Distribution Width 13.7 % (11.5-14.5); White Blood Count 14.7 K/mcL (4.3-11.1)
[2021-03-22 06:41] LABS: Albumin 3.3 g/dL (3.5-5.7); Bilirubin,Total 0.3 mg/dL (0.3-1.0); Calcium 9.5 mg/dL (8.6-10.3); Globulin 3.3 g/dL (2.4-3.5); Potassium 4.6 mEq/L (3.5-5.1); Total Protein 6.6 g/dL (6.4-8.9)
[2021-03-22] MEDS ORDERED: *HR* Rivaroxaban 10 MG TABLET PO SCH (09:00)
[2021-03-22] MEDS ORDERED: Valsartan 160 MG TABLET PO SCH (09:00)
[2021-03-22] MEDS: Dexamethasone Sodium Phos/PF 10 MG/ML VIAL IVP SCH (09:12)
[2021-03-22] MEDS: NIFEdipine XL (24 HR) 30 MG TAB.ER.24 PO SCH (09:13)
[2021-03-22] MEDS: Insulin LISPRO 300 UNITS/3 ML VIAL SUBQ SCH ×3 (09:15→17:01)
[2021-03-22] MEDS: Acetaminophen 325 MG TABLET PO PRN ×2 (12:45→20:45)
[2021-03-22] MEDS: cefTRIAXone 1,000 MG in 0.9 % Sodium Chloride Mini Bag 100 ML IVPB SCH (12:46)
[2021-03-22] MEDS: Azithromycin 500 MG in 0.9 % Sodium Chloride 250 ML IVPB SCH (12:46)
[2021-03-22] MEDS: *HR* LORazepam 0.5 MG TABLET PO PRN (13:16)
[2021-03-22] MEDS: *HR* Rivaroxaban 15 MG TABLET PO SCH (17:00)
[2021-03-22] MEDS: Insulin DETEMIR 100 UNIT/ML X5UNITS SUBQ SCH (20:46)
[2021-03-23] MEDS ORDERED: *HR* Glimepiride 2 MG TABLET PO SCH (09:00)
[2021-03-23 09:55] LABS: Basophils % 0.2 %; Hematocrit 41.2 % (37.5-50.1); Hemoglobin 13.7 g/dL (12.9-16.9); Immature Granulocytes % 0.8 % (0-4); Lymphocytes # 0.6 K/mcL (0.6-4.6); Lymphocytes % 4.5 %; Mean Corpuscular HGB Conc 33.3 g/dL (31.6-35.5); Mean Corpuscular Hemoglobin 28.8 pg (28.0-33.3); Mean Corpuscular Volume 86.7 fL (83.0-100.0); Mean Platelet Volume 10.9 fL (9.4-12.4); Monocytes # 0.5 K/mcL (0.0-1.3); Monocytes % 4.3 %; Neutrophils # 11.2 K/mcL (1.6-8.9); Platelet Count 372 K/mcL (140-400); Red Blood Count 4.75 M/mcL (4.19-5.50); Red Cell Distribution Width 13.9 % (11.5-14.5); Segmented Neutrophils % 90.2 %; White Blood Count 12.4 K/mcL (4.3-11.1)
[2021-03-23] MEDS: Dexamethasone Sodium Phos/PF 10 MG/ML VIAL IVP SCH (10:15)
[2021-03-23] MEDS: NIFEdipine XL (24 HR) 30 MG TAB.ER.24 PO SCH (10:15)
[2021-03-23 10:24] LABS: Calcium 9.8 mg/dL (8.6-10.3); Potassium 4.7 mEq/L (3.5-5.1)
[2021-03-23] MEDS: Insulin LISPRO 300 UNITS/3 ML VIAL SUBQ SCH ×3 (10:30→18:10)
[2021-03-23] MEDS: Cholecalciferol (D-3) 1,000 UNIT (25MCG) TABLET PO SCH (10:30)
[2021-03-23] MEDS: Azithromycin 500 MG in 0.9 % Sodium Chloride 250 ML IVPB SCH (16:13)
[2021-03-23] MEDS: cefTRIAXone 1,000 MG in 0.9 % Sodium Chloride Mini Bag 100 ML IVPB SCH (18:09)
[2021-03-23] MEDS: *HR* Rivaroxaban 15 MG TABLET PO SCH (18:10)
[2021-03-23] MEDS: Acetaminophen 325 MG TABLET PO PRN (19:04)
[2021-03-23] MEDS: Insulin DETEMIR 100 UNIT/ML X5UNITS SUBQ SCH (21:03)
[2021-03-24] MEDS: Insulin LISPRO 300 UNITS/3 ML VIAL SUBQ SCH ×3 (10:05→17:00)
[2021-03-24 10:11] LABS: Basophils # 0.1 K/mcL (0.0-0.2); Basophils % 0.4 %; Eosinophils % 0.1 %; Hemoglobin 14.6 g/dL (12.9-16.9); Immature Granulocytes % 1.6 % (0-4); Lymphocytes # 0.8 K/mcL (0.6-4.6); Mean Corpuscular HGB Conc 32.4 g/dL (31.6-35.5); Mean Corpuscular Hemoglobin 28.2 pg (28.0-33.3); Mean Corpuscular Volume 86.9 fL (83.0-100.0); Mean Platelet Volume 10.3 fL (9.4-12.4); Monocytes # 0.6 K/mcL (0.0-1.3); Monocytes % 4.5 %; Neutrophils # 12.2 K/mcL (1.6-8.9); Platelet Count 366 K/mcL (140-400); Red Blood Count 5.18 M/mcL (4.19-5.50); Red Cell Distribution Width 13.9 % (11.5-14.5); Segmented Neutrophils % 87.4 %
[2021-03-24 10:29] LABS: Potassium 4.4 mEq/L (3.5-5.1)
[2021-03-24] MEDS: Cholecalciferol (D-3) 1,000 UNIT (25MCG) TABLET PO SCH (10:43)
[2021-03-24] MEDS: NIFEdipine XL (24 HR) 30 MG TAB.ER.24 PO SCH (10:43)
[2021-03-24] MEDS: Dexamethasone Sodium Phos/PF 10 MG/ML VIAL IVP SCH (10:44)
[2021-03-24] MEDS: Acetaminophen 325 MG TABLET PO PRN ×2 (10:57→20:45)
[2021-03-24] MEDS: Azithromycin 500 MG in 0.9 % Sodium Chloride 250 ML IVPB SCH (14:28)
[2021-03-24] MEDS: cefTRIAXone 1,000 MG in 0.9 % Sodium Chloride Mini Bag 100 ML IVPB SCH (14:28)
[2021-03-24] MEDS ORDERED: *HR* Heparin 5,000 UNIT/ML VIAL IVP PRN (16:45)
[2021-03-24] MEDS ORDERED: Heparin 25,000UNIT/250ML 1/2NS 25,000 UNIT/250 ML IV.SOLN IVC SCH (16:45)
[2021-03-24] MEDS ORDERED: *HR* Heparin 5,000 UNIT/ML VIAL IVP ONE (16:45)
[2021-03-24 19:23] LABS: Heparin anti-factor XA UFH 0.2 IU/mL (0.30-0.70); INR 1.5; Prothrombin Time 16.8 Seconds (9.4-12.1)
[2021-03-24] MEDS: Heparin 25,000UNIT/250ML 1/2NS 25,000 UNIT/250 ML IV.SOLN IVC SCH (19:59)
[2021-03-24] MEDS: *HR* LORazepam 0.5 MG TABLET PO PRN (20:45)
[2021-03-24] MEDS: Insulin DETEMIR 100 UNIT/ML X5UNITS SUBQ SCH (21:51)
[2021-03-25] MEDS: NIFEdipine XL (24 HR) 30 MG TAB.ER.24 PO SCH (10:03)
[2021-03-25] MEDS: Dexamethasone Sodium Phos/PF 10 MG/ML VIAL IVP SCH (10:04)
[2021-03-25] MEDS: Cholecalciferol (D-3) 1,000 UNIT (25MCG) TABLET PO SCH (10:04)
[2021-03-25] MEDS: *HR* LORazepam 0.5 MG TABLET PO PRN ×2 (10:09→22:18)
[2021-03-25] MEDS: Insulin LISPRO 300 UNITS/3 ML VIAL SUBQ SCH ×3 (10:12→18:19)
[2021-03-25] MEDS: Azithromycin 500 MG in 0.9 % Sodium Chloride 250 ML IVPB SCH (13:31)
[2021-03-25] MEDS: cefTRIAXone 1,000 MG in 0.9 % Sodium Chloride Mini Bag 100 ML IVPB SCH (13:32)
[2021-03-25] MEDS: Heparin 25,000UNIT/250ML 1/2NS 25,000 UNIT/250 ML IV.SOLN IVC SCH (18:19)
[2021-03-25] MEDS: Insulin DETEMIR 100 UNIT/ML X5UNITS SUBQ SCH (22:18)
[2021-03-25] MEDS: Acetaminophen 325 MG TABLET PO PRN (22:24)
[2021-03-26 03:40] LABS: Basophils # 0.1 K/mcL (0.0-0.2); Basophils % 0.5 %; Eosinophils % 0.1 %; Hematocrit 40.8 % (37.5-50.1); Hemoglobin 13.8 g/dL (12.9-16.9); Immature Granulocytes % 4.6 % (0-4); Lymphocytes # 0.7 K/mcL (0.6-4.6); Lymphocytes % 5.1 %; Mean Corpuscular HGB Conc 33.8 g/dL (31.6-35.5); Mean Corpuscular Hemoglobin 28.5 pg (28.0-33.3); Mean Corpuscular Volume 84.1 fL (83.0-100.0); Monocytes # 0.4 K/mcL (0.0-1.3); Monocytes % 2.8 %; Neutrophils # 11.8 K/mcL (1.6-8.9); Platelet Count 300 K/mcL (140-400); Red Blood Count 4.85 M/mcL (4.19-5.50); Red Cell Distribution Width 13.7 % (11.5-14.5); Segmented Neutrophils % 86.9 %; White Blood Count 13.6 K/mcL (4.3-11.1)
[2021-03-26 03:52] LABS: Calcium 9.2 mg/dL (8.6-10.3); Potassium 4.5 mEq/L (3.5-5.1)
[2021-03-26] MEDS: Cholecalciferol (D-3) 1,000 UNIT (25MCG) TABLET PO SCH (10:38)
[2021-03-26] MEDS: NIFEdipine XL (24 HR) 30 MG TAB.ER.24 PO SCH (10:38)
[2021-03-26] MEDS: Dexamethasone Sodium Phos/PF 10 MG/ML VIAL IVP SCH (10:39)
[2021-03-26] MEDS: Insulin LISPRO 300 UNITS/3 ML VIAL SUBQ SCH ×3 (10:40→18:26)
[2021-03-26] MEDS: Heparin 25,000UNIT/250ML 1/2NS 25,000 UNIT/250 ML IV.SOLN IVC SCH (12:07)
[2021-03-26] MEDS: cefTRIAXone 1,000 MG in 0.9 % Sodium Chloride Mini Bag 100 ML IVPB SCH (13:29)
[2021-03-26] MEDS: Azithromycin 500 MG in 0.9 % Sodium Chloride 250 ML IVPB SCH (13:31)
[2021-03-26] MEDS: *HR* LORazepam 0.5 MG TABLET PO PRN ×2 (15:13→20:07)
[2021-03-26] MEDS ORDERED: Isovue-370 500 ML BOTTLE IVP ONE (17:25)
[2021-03-26] MEDS: Acetaminophen 325 MG TABLET PO PRN (20:07)
[2021-03-26] MEDS: Insulin DETEMIR 100 UNIT/ML X5UNITS SUBQ SCH (20:19)
[2021-03-27 01:26] LABS: Basophils % 0.4 %; Hematocrit 38.4 % (37.5-50.1); Hemoglobin 12.8 g/dL (12.9-16.9); Immature Granulocytes % 4.4 % (0-4); Lymphocytes # 0.4 K/mcL (0.6-4.6); Lymphocytes % 3.5 %; Mean Corpuscular HGB Conc 33.3 g/dL (31.6-35.5); Mean Corpuscular Volume 87.1 fL (83.0-100.0); Mean Platelet Volume 10.1 fL (9.4-12.4); Monocytes # 0.2 K/mcL (0.0-1.3); Monocytes % 2.2 %; Neutrophils # 9.9 K/mcL (1.6-8.9); Platelet Count 283 K/mcL (140-400); Red Blood Count 4.41 M/mcL (4.19-5.50); Red Cell Distribution Width 13.8 % (11.5-14.5); Segmented Neutrophils % 89.5 %
[2021-03-27 01:44] LABS: Calcium 8.7 mg/dL (8.6-10.3)
[2021-03-27] MEDS ORDERED: Morphine Sulfate 2 MG/ML SYRINGE IVP ONE (04:43)
[2021-03-27] MEDS ORDERED: Furosemide 20 MG/2 ML VIAL IVP ONE (06:02)
[2021-03-27] MEDS: Nitroglycerin 0.1 MG PATCH.TD24 TD SCH ×2 (06:28→08:07)
[2021-03-27] MEDS: Dexamethasone Sodium Phos/PF 10 MG/ML VIAL IVP SCH (08:05)
[2021-03-27] MEDS: niCARdipine 20 MG/200 ML MLS IVC SCH ×3 (08:12→17:29)
[2021-03-27] MEDS: Insulin LISPRO 300 UNITS/3 ML VIAL SUBQ SCH ×3 (08:30→17:28)
[2021-03-27] MEDS ORDERED: *HR* LORazepam 2 MG/ML VIAL IVP ONE (09:37)
[2021-03-27] MEDS: NIFEdipine XL (24 HR) 30 MG TAB.ER.24 PO SCH (11:14)
[2021-03-27] MEDS: Cholecalciferol (D-3) 1,000 UNIT (25MCG) TABLET PO SCH (11:14)
[2021-03-27] MEDS: Heparin 25,000UNIT/250ML 1/2NS 25,000 UNIT/250 ML IV.SOLN IVC SCH (12:12)
[2021-03-27] MEDS: Azithromycin 500 MG in 0.9 % Sodium Chloride 250 ML IVPB SCH (12:34)
[2021-03-27] MEDS: cefTRIAXone 1,000 MG in 0.9 % Sodium Chloride Mini Bag 100 ML IVPB SCH (12:34)
[2021-03-27] MEDS: Insulin DETEMIR 100 UNIT/ML X5UNITS SUBQ SCH (20:28)
[2021-03-28] MEDS: hydrALAZINE 25 MG TABLET PO SCH ×4 (00:02→23:20)
[2021-03-28] MEDS: niCARdipine 20 MG/200 ML MLS IVC SCH ×3 (01:02→11:48)
[2021-03-28 01:10] LABS: Basophils % 0.2 %; Hematocrit 38.7 % (37.5-50.1); Hemoglobin 12.8 g/dL (12.9-16.9); Immature Granulocytes % 3.8 % (0-4); Lymphocytes # 0.3 K/mcL (0.6-4.6); Lymphocytes % 2.5 %; Mean Corpuscular HGB Conc 33.1 g/dL (31.6-35.5); Mean Corpuscular Hemoglobin 28.6 pg (28.0-33.3); Mean Corpuscular Volume 86.4 fL (83.0-100.0); Mean Platelet Volume 10.2 fL (9.4-12.4); Monocytes # 0.2 K/mcL (0.0-1.3); Monocytes % 1.6 %; Neutrophils # 11.3 K/mcL (1.6-8.9); Platelet Count 301 K/mcL (140-400); Red Blood Count 4.48 M/mcL (4.19-5.50); Red Cell Distribution Width 13.9 % (11.5-14.5); Segmented Neutrophils % 91.9 %; White Blood Count 12.3 K/mcL (4.3-11.1)
[2021-03-28 01:27] LABS: Calcium 8.6 mg/dL (8.6-10.3); Potassium 4.6 mEq/L (3.5-5.1)
[2021-03-28] MEDS: Cholecalciferol (D-3) 1,000 UNIT (25MCG) TABLET PO SCH (08:46)
[2021-03-28] MEDS: Nitroglycerin 0.1 MG PATCH.TD24 TD SCH (08:46)
[2021-03-28] MEDS: NIFEdipine XL (24 HR) 30 MG TAB.ER.24 PO SCH (08:46)
[2021-03-28] MEDS: Insulin LISPRO 300 UNITS/3 ML VIAL SUBQ SCH ×3 (08:48→17:06)
[2021-03-28] MEDS: Dexamethasone Sodium Phos/PF 10 MG/ML VIAL IVP SCH (08:50)
[2021-03-28] MEDS: Heparin 25,000UNIT/250ML 1/2NS 25,000 UNIT/250 ML IV.SOLN IVC SCH ×2 (08:50→17:04)
[2021-03-28] MEDS: cefTRIAXone 1,000 MG in 0.9 % Sodium Chloride Mini Bag 100 ML IVPB SCH (14:05)
[2021-03-28] MEDS: Azithromycin 500 MG in 0.9 % Sodium Chloride 250 ML IVPB SCH (14:05)
[2021-03-28] MEDS: *HR* Heparin 5,000 UNIT/ML VIAL IVP PRN (16:00)
[2021-03-28] MEDS: Insulin DETEMIR 100 UNIT/ML X5UNITS SUBQ SCH (20:24)
[2021-03-28] MEDS: *HR* LORazepam 1 MG TABLET PO PRN (20:24)
[2021-03-29] MEDS: Saline Nasal Spray 44 ML BOTTLE NS SCH ×4 (04:13→21:14)
[2021-03-29] MEDS: Ipratropium 1 PUFF INHALER IH SCH ×6 (04:50→20:55)
[2021-03-29 05:06] LABS: Basophils % 0.1 %; Hematocrit 38.6 % (37.5-50.1); Hemoglobin 12.7 g/dL (12.9-16.9); Immature Granulocytes % 2.4 % (0-4); Lymphocytes # 0.6 K/mcL (0.6-4.6); Lymphocytes % 2.9 %; Mean Corpuscular HGB Conc 32.9 g/dL (31.6-35.5); Mean Corpuscular Hemoglobin 28.1 pg (28.0-33.3); Mean Corpuscular Volume 85.4 fL (83.0-100.0); Mean Platelet Volume 10.2 fL (9.4-12.4); Monocytes # 0.6 K/mcL (0.0-1.3); Monocytes % 2.7 %; Platelet Count 318 K/mcL (140-400); Red Blood Count 4.52 M/mcL (4.19-5.50); Red Cell Distribution Width 13.7 % (11.5-14.5); Segmented Neutrophils % 91.9 %
[2021-03-29 05:07] LABS: Neutrophils # 18.9 K/mcL (1.6-8.9); White Blood Count 20.6 K/mcL (4.3-11.1)
[2021-03-29 05:15] LABS: ABG Base Excess -4 mEq/L (-2 to 3); ABG HCO3 19 mEq/L (21-27); ABG Oxygen Saturation 99 % (95-98); ABG PCO2 28 mmHg (35-45); ABG PH 7.43 pH Units (7.32-7.45); ABG PO2 109 mmHg (85-104); ABG TCO2 20 mEq/L (20-26)
[2021-03-29 06:22] LABS: Calcium 9.2 mg/dL (8.6-10.3); Potassium 4.9 mEq/L (3.5-5.1)
[2021-03-29] MEDS: Cholecalciferol (D-3) 1,000 UNIT (25MCG) TABLET PO SCH (08:01)
[2021-03-29] MEDS: Chlorhexidine Rinse 15 ML MOUTHWASH MM SCH ×2 (08:02→21:17)
[2021-03-29] MEDS: Insulin LISPRO 300 UNITS/3 ML VIAL SUBQ SCH ×3 (08:02→16:57)
[2021-03-29] MEDS: Dexamethasone Sodium Phos/PF 10 MG/ML VIAL IVP SCH (08:03)
[2021-03-29] MEDS: Artificial Tears SOLN 15 ML BOTTLE BOTH EYES SCH ×4 (08:04→21:14)
[2021-03-29] MEDS: NIFEdipine XL (24 HR) 30 MG TAB.ER.24 PO SCH (08:14)
[2021-03-29] MEDS: hydrALAZINE 25 MG TABLET PO SCH ×2 (08:17→16:57)
[2021-03-29] MEDS: cefTRIAXone 1,000 MG in 0.9 % Sodium Chloride Mini Bag 100 ML IVPB SCH (12:41)
[2021-03-29] MEDS: Saliva Stimulant 44.3ml BOTTLE PO PRN (12:44)
[2021-03-29] MEDS: Azithromycin 500 MG in 0.9 % Sodium Chloride 250 ML IVPB SCH (13:51)
[2021-03-29] MEDS: Heparin 25,000UNIT/250ML 1/2NS 25,000 UNIT/250 ML IV.SOLN IVC SCH (16:59)
[2021-03-29] MEDS: *HR* LORazepam 1 MG TABLET PO PRN (19:33)
[2021-03-29] MEDS: Insulin DETEMIR 100 UNIT/ML X5UNITS SUBQ SCH (21:18)
[2021-03-30] MEDS: hydrALAZINE 25 MG TABLET PO SCH ×4 (00:22→23:37)
[2021-03-30] MEDS: Ipratropium 1 PUFF INHALER IH SCH ×6 (00:31→19:51)
[2021-03-30] MEDS ORDERED: *HR* LORazepam 2 MG/ML VIAL IVP ONE (04:24)
[2021-03-30 05:30] LABS: Basophils % 0.2 %; Hematocrit 39.1 % (37.5-50.1); Hemoglobin 12.6 g/dL (12.9-16.9); Immature Granulocytes % 3.1 % (0-4); Lymphocytes # 0.3 K/mcL (0.6-4.6); Lymphocytes % 1.3 %; Mean Corpuscular HGB Conc 32.2 g/dL (31.6-35.5); Mean Corpuscular Hemoglobin 27.6 pg (28.0-33.3); Mean Corpuscular Volume 85.6 fL (83.0-100.0); Mean Platelet Volume 10.3 fL (9.4-12.4); Monocytes # 0.6 K/mcL (0.0-1.3); Monocytes % 2.5 %; Neutrophils # 22.2 K/mcL (1.6-8.9); Platelet Count 303 K/mcL (140-400); Red Blood Count 4.57 M/mcL (4.19-5.50); Segmented Neutrophils % 92.9 %; White Blood Count 23.9 K/mcL (4.3-11.1)
[2021-03-30] MEDS: Saliva Stimulant 44.3ml BOTTLE PO PRN ×2 (05:30→10:03)
[2021-03-30 05:36] LABS: Potassium 4.7 mEq/L (3.5-5.1)
[2021-03-30 05:41] LABS: Basophils # 0.1 K/mcL (0.0-0.2)
[2021-03-30] MEDS: *HR* Heparin 5,000 UNIT/ML VIAL IVP PRN (06:09)
[2021-03-30] MEDS ORDERED: Ondansetron 4 MG/2 ML VIAL IVP PRN (06:36)
[2021-03-30 07:22] LABS: Platelet Estimate Normal (Normal)
[2021-03-30] MEDS: Cholecalciferol (D-3) 1,000 UNIT (25MCG) TABLET PO SCH (09:50)
[2021-03-30] MEDS ORDERED: Metoclopramide 10 MG/2 ML VIAL IVP ONE (09:57)
[2021-03-30] MEDS: Insulin LISPRO 300 UNITS/3 ML VIAL SUBQ SCH ×3 (09:58→16:23)
[2021-03-30] MEDS: Artificial Tears SOLN 15 ML BOTTLE BOTH EYES SCH ×4 (09:58→19:32)
[2021-03-30] MEDS: Saline Nasal Spray 44 ML BOTTLE NS SCH ×4 (10:02→19:32)
[2021-03-30] MEDS: Chlorhexidine Rinse 15 ML MOUTHWASH MM SCH ×2 (10:04→19:32)
[2021-03-30] MEDS: Heparin 25,000UNIT/250ML 1/2NS 25,000 UNIT/250 ML IV.SOLN IVC SCH (12:47)
[2021-03-30] MEDS: Azithromycin 500 MG in 0.9 % Sodium Chloride 250 ML IVPB SCH (12:48)
[2021-03-30] MEDS: cefTRIAXone 1,000 MG in 0.9 % Sodium Chloride Mini Bag 100 ML IVPB SCH (12:49)
[2021-03-30] MEDS ORDERED: Furosemide 20 MG/2 ML VIAL IVP ONE (13:04)
[2021-03-30] MEDS: *HR* LORazepam 1 MG TABLET PO PRN (13:26)
[2021-03-30] MEDS: Dexmedetomidine HCl 400 MCG/100 ML MLS IVC SCH (14:55)
[2021-03-30] MEDS: NIFEdipine XL (24 HR) 30 MG TAB.ER.24 PO SCH (19:33)
[2021-03-30] MEDS: Insulin DETEMIR 100 UNIT/ML X5UNITS SUBQ SCH (20:32)
[2021-03-31] MEDS: Dexmedetomidine HCl 400 MCG/100 ML MLS IVC SCH ×5 (00:13→21:54)
[2021-03-31] MEDS: Ipratropium 1 PUFF INHALER IH SCH ×7 (00:27→23:43)
[2021-03-31 05:00] LABS: Basophils % 0.1 %; Eosinophils # 0.1 K/mcL (0.0-0.6); Eosinophils % 0.3 %; Hematocrit 37.4 % (37.5-50.1); Hemoglobin 12.2 g/dL (12.9-16.9); Lymphocytes # 0.3 K/mcL (0.6-4.6); Lymphocytes % 1.6 %; Mean Corpuscular HGB Conc 32.6 g/dL (31.6-35.5); Mean Corpuscular Hemoglobin 28.7 pg (28.0-33.3); Mean Platelet Volume 10.5 fL (9.4-12.4); Monocytes # 0.1 K/mcL (0.0-1.3); Monocytes % 0.6 %; Neutrophils # 18.8 K/mcL (1.6-8.9); Platelet Count 206 K/mcL (140-400); Red Blood Count 4.25 M/mcL (4.19-5.50); Red Cell Distribution Width 14.2 % (11.5-14.5); Segmented Neutrophils % 96.4 %; White Blood Count 19.5 K/mcL (4.3-11.1)
[2021-03-31 05:12] LABS: Calcium 8.7 mg/dL (8.6-10.3); Potassium 5.5 mEq/L (3.5-5.1)
[2021-03-31] MEDS: Insulin LISPRO 300 UNITS/3 ML VIAL SUBQ SCH ×3 (08:36→20:56)
[2021-03-31] MEDS: Heparin 25,000UNIT/250ML 1/2NS 25,000 UNIT/250 ML IV.SOLN IVC SCH (10:05)
[2021-03-31 12:13] LABS: Magnesium 2.3 mg/dL (1.6-2.6); Phosphorous 5.1 mg/dL (2.7-4.5)
[2021-03-31] MEDS ORDERED: D10% in Water 500 ML IVC PRN (12:27)
[2021-03-31] MEDS ORDERED: Lidocaine -MPF 1% 5 ML AMPUL INFILT ONE (14:23)
[2021-03-31] MEDS: cefTRIAXone 1,000 MG in 0.9 % Sodium Chloride Mini Bag 100 ML IVPB SCH (16:10)
[2021-03-31] MEDS ORDERED: Fat Emulsion 250 ML IVPB SCH (17:00)
[2021-03-31] MEDS ORDERED: Clinimix 5%-20% SOLUTION 2,000 ML with MVI, adult with vitamin K 10 ML, Sodium Acetat... IVC SCH (17:00)
[2021-03-31] MEDS: Artificial Tears SOLN 15 ML BOTTLE BOTH EYES SCH ×4 (18:19→20:55)
[2021-03-31] MEDS: Saliva Stimulant 44.3ml BOTTLE PO PRN (18:19)
[2021-03-31] MEDS: Saline Nasal Spray 44 ML BOTTLE NS SCH ×4 (18:21→20:55)
[2021-03-31] MEDS: hydrALAZINE 25 MG TABLET PO SCH ×2 (18:21→18:44)
[2021-03-31] MEDS: Chlorhexidine Rinse 15 ML MOUTHWASH MM SCH ×2 (18:22→20:56)
[2021-03-31] MEDS: Cholecalciferol (D-3) 1,000 UNIT (25MCG) TABLET PO SCH (18:22)
[2021-03-31] MEDS: Insulin DETEMIR 100 UNIT/ML X5UNITS SUBQ SCH (20:55)
[2021-03-31] MEDS: NIFEdipine XL (24 HR) 30 MG TAB.ER.24 PO SCH (20:56)
[2021-03-31] MEDS ORDERED: *HR* LORazepam 2 MG/ML VIAL IVP ONE (21:40)
[2021-04-01] MEDS: Insulin LISPRO 300 UNITS/3 ML VIAL SUBQ SCH ×5 (00:39→17:21)
[2021-04-01] MEDS ORDERED: Morphine Sulfate 2 MG/ML SYRINGE IH ONE (02:12)
[2021-04-01 02:59] LABS: Basophils % 0.1 %; Eosinophils # 0.2 K/mcL (0.0-0.6); Eosinophils % 0.7 %; Hematocrit 39.3 % (37.5-50.1); Hemoglobin 12.7 g/dL (12.9-16.9); Immature Granulocytes % 1.1 % (0-4); Lymphocytes # 0.3 K/mcL (0.6-4.6); Mean Corpuscular HGB Conc 32.3 g/dL (31.6-35.5); Mean Corpuscular Hemoglobin 30.2 pg (28.0-33.3); Mean Corpuscular Volume 93.6 fL (83.0-100.0); Mean Platelet Volume 10.9 fL (9.4-12.4); Monocytes # 0.1 K/mcL (0.0-1.3); Monocytes % 0.4 %; Neutrophils # 23.7 K/mcL (1.6-8.9); Platelet Count 159 K/mcL (140-400); Red Cell Distribution Width 14.8 % (11.5-14.5); Segmented Neutrophils % 96.7 %; White Blood Count 24.5 K/mcL (4.3-11.1)
[2021-04-01 03:17] LABS: Platelet Estimate Normal (Normal)
[2021-04-01] MEDS: Dexmedetomidine HCl 400 MCG/100 ML MLS IVC SCH ×3 (03:49→14:04)
[2021-04-01] MEDS: Ipratropium 1 PUFF INHALER IH SCH (03:49)
[2021-04-01] MEDS ORDERED: *HR* LORazepam 2 MG/ML VIAL IVP ONE (05:07)
[2021-04-01] MEDS: hydrALAZINE 25 MG TABLET PO SCH ×2 (05:07→08:14)
[2021-04-01] MEDS ORDERED: Furosemide 20 MG/2 ML VIAL IVP ONE (05:13)
[2021-04-01] MEDS: Heparin 25,000UNIT/250ML 1/2NS 25,000 UNIT/250 ML IV.SOLN IVC SCH (05:37)
[2021-04-01 06:09] LABS: Albumin 2.3 g/dL (3.5-5.7); Albumin/Globulin Ratio 0.7 (1.1-2.2); Bilirubin,Total 0.2 mg/dL (0.3-1.0); Calcium 8.8 mg/dL (8.6-10.3); Globulin 3.1 g/dL (2.4-3.5); Magnesium 2.4 mg/dL (1.6-2.6); Phosphorous 5.1 mg/dL (2.7-4.5); Potassium 5.1 mEq/L (3.5-5.1); Total Protein 5.4 g/dL (6.4-8.9)
[2021-04-01] MEDS: Ipratropium/Albuterol Neb 3 ML IH SCH ×4 (07:56→19:58)
[2021-04-01] MEDS ORDERED: *HR* LORazepam 2 MG/ML VIAL IVP PRN (08:09)
[2021-04-01] MEDS: Saline Nasal Spray 44 ML BOTTLE NS SCH ×2 (08:14→11:45)
[2021-04-01] MEDS: Artificial Tears SOLN 15 ML BOTTLE BOTH EYES SCH ×2 (08:14→11:45)
[2021-04-01] MEDS: Saliva Stimulant 44.3ml BOTTLE PO PRN ×4 (08:14→16:30)
[2021-04-01] MEDS: Cholecalciferol (D-3) 1,000 UNIT (25MCG) TABLET PO SCH (08:15)
[2021-04-01] MEDS: Chlorhexidine Rinse 15 ML MOUTHWASH MM SCH (08:15)
[2021-04-01 11:25] VITALS: BP 154/79
[2021-04-01 11:26] VITALS: O2SAT 90
[2021-04-01] MEDS ORDERED: Morphine Sulfate 2 MG/ML SYRINGE IVP ONE (11:26)
[2021-04-01 11:44] VITALS: PULSE 83; TEMP 96.3
[2021-04-01] MEDS: cefTRIAXone 1,000 MG in 0.9 % Sodium Chloride Mini Bag 100 ML IVPB SCH (12:53)
[2021-04-01] MEDS: *HR* LORazepam 2 MG/ML VIAL IVP PRN ×3 (13:55→17:20)
[2021-04-01] MEDS: *HR* FentaNYL (PF) 100 MCG/2 ML VIAL IVP PRN ×3 (13:56→17:20)
[2021-04-01] MEDS ORDERED: Clinimix 5%-20% SOLUTION 2,000 ML with MVI, adult with vitamin K 10 ML, Sodium Acetat... IVC SCH (17:00)
[2021-04-02] MEDS ORDERED: Clinimix 5%-20% SOLUTION 2,000 ML with MVI, adult with vitamin K 10 ML, Sodium Acetat... IVC SCH (17:00)
== END 2021-04-01 21:20 | disposition expired | DRG 177 ==
LOC: 2ANU → SUATTDRO 03-21 11:56 → 3NENU 03-22 20:19
PROVIDERS: ADMIT Internal Medicine; ATTEND Hospitalist